=== PATIENT | male | born 1935 | race Caucasian/White ===

== ENCOUNTER 2017-12-23 21:15 | Inpatient (IN) ==
[2017-12-23] MEDS ORDERED: ONDANSETRON 4 MG/2 ML VIAL IV STA (22:53)
[2017-12-23 23:36] LABS: Basophils % 0.6 % (0.0-0.8); Eosinophils # 0.2 10*3/uL (0.0-0.87); Eosinophils % 3.7 % (0.00-10.9); Hematocrit 26.4 VOL% (42.0-52.0); Hemoglobin 8.7 GM/DL (14.0-18.0); Immature Granulocytes % 0.8 %; Immature Granulocytes Absolute 0.05 #; Lymphocytes # 1.2 10*3/uL (1.4-4.0); Mean Corpuscular Hemoglobin 30 PG (27-34); Mean Corpuscular Volume 91.7 FL (87-102); Monocytes # 0.9 10*3/uL (0.11-0.8); Monocytes % 13.8 % (1.7-12.7); Neutrophils # 3.8 10*3/uL (1.4-7.4); Neutrophils % 62.1 % (38.7-73.9); Platelet Count 230 T/CUMM (130-400); Red Blood Count 2.88 MC/CUMM (3.8-5.5); Red Cell Distribution Width 18.7 % (9.3-17.3); White Blood Count 6.2 T/CUMM (4-12)
[2017-12-23] MEDS: HYDROmorphone 2 MG/1 ML VIAL IV PRN (23:39)
[2017-12-24] LABS: Albumin 3.5 G/DL (3.4-5.0); Bilirubin,Total 0.5 MG/DL (0.2-1.0); Osmolality,Calculated 267.5 MOS/KG (273-304); Potassium 4.5 MMOL/L (3.5-5.1); Total Protein 7.2 G/DL (6.4-8.3)
[2017-12-24] MEDS: HYDROmorphone 2 MG/1 ML VIAL IV PRN ×2 (00:56→04:03)
[2017-12-24 01:37] LABS: Apearance,Urine CLEAR (Clear); Bacteria,Urine Occasional /HPF (Few); Bilirubin,Urine Negative (Negative); Blood, Urine Negative (Negative); Glucose,Urine (UA) Negative (Negative); Hyaline Casts,Urine 3 /LPF (0-3); Ketones,Urine Negative (Negative); Nitrite,Urine Negative (Negative); Protein,Urine 30 MG/DL; RBC,Urine 3 /HPF (0-4); Urine Color Amber (Yellow); Urine Specific Gravity 1.015 (1.001-1.035); Urine Urobilinogen < 2.0 EU/DL (0.2-1.0); WBC,Urine 1 /HPF (0-6)
[2017-12-24] MEDS ORDERED: ONDANSETRON 4 MG/2 ML VIAL IV PRN ×2 (01:41→12:26)
[2017-12-24] MEDS ORDERED: ACETAMINOPHEN 325 MG TABLET PO PRN (01:41)
[2017-12-24] MEDS ORDERED: FUROSEMIDE 20 MG TABLET PO PRN (08:18)
[2017-12-24] MEDS ORDERED: NITROGLYCERIN SL 0.4 MG TABLET SL PRN (08:18)
[2017-12-24] MEDS ORDERED: SODIUM CHLORIDE 0.9% 1,000 ML IV ONE (08:46)
[2017-12-24] MEDS ORDERED: ceFAZolin 1,000 MG in SYRINGE 1 EACH IV ONE (09:49)
[2017-12-24 10:01] LABS: Basophils % 0.7 % (0.0-0.8); Eosinophils # 0.4 10*3/uL (0.0-0.87); Eosinophils % 6.1 % (0.00-10.9); Hematocrit 26.2 VOL% (42.0-52.0); Hemoglobin 8.9 GM/DL (14.0-18.0); Immature Granulocytes % 0.3 %; Immature Granulocytes Absolute 0.02 #; Lymphocytes # 0.9 10*3/uL (1.4-4.0); Lymphocytes % 15.6 % (21.2-54.2); Mean Corpuscular Hemoglobin 31 PG (27-34); Monocytes # 0.7 10*3/uL (0.11-0.8); Monocytes % 11.3 % (1.7-12.7); Neutrophils # 3.9 10*3/uL (1.4-7.4); Platelet Count 238 T/CUMM (130-400); Red Blood Count 2.88 MC/CUMM (3.8-5.5); Red Cell Distribution Width 19.4 % (9.3-17.3)
[2017-12-24 10:16] LABS: Calcium 8.9 MG/DL (8.5-10.1); Osmolality,Calculated 270.2 MOS/KG (273-304); Potassium 5.2 MMOL/L (3.5-5.1)
[2017-12-24] MEDS ORDERED: LIDOCAINE 1%/EPI INJ 20 ML VIAL ONE (10:39)
[2017-12-24] MEDS: amLODIPine 10 MG TABLET PO SCH (10:41)
[2017-12-24] MEDS: LORATADINE 10 MG TABLET PO SCH (10:42)
[2017-12-24] MEDS: ASPIRIN EC 81 MG TABLET PO SCH (10:42)
[2017-12-24] MEDS: DOCUSATE SODIUM 100 MG CAPSULE PO SCH ×2 (10:42→20:05)
[2017-12-24] MEDS: POLYETHYLENE GLYCOL POWDER 17 GM PACK PO SCH (10:42)
[2017-12-24] MEDS: ATORVASTATIN 40 MG TABLET PO SCH (10:42)
[2017-12-24] MEDS: TAMSULOSIN 0.4 MG CAPSULE PO SCH (10:42)
[2017-12-24] MEDS: oxyCODONE/ACETAMINOPHEN 5-325 MG TABLET PO SCH ×3 (10:43→20:04)
[2017-12-24] MEDS ORDERED: SODIUM POLYSTYRENE SULFATE 15 GM/60 ML BOTTLE PO STA (11:50)
[2017-12-24] MEDS ORDERED: PROPOFOL 200 MG/20 ML VIAL IV ONE (12:09)
[2017-12-24] MEDS ORDERED: MIDAZOLAM 2 MG/2 ML VIAL ONE (12:09)
[2017-12-24] MEDS ORDERED: ONDANSETRON 4 MG/2 ML VIAL ONE (12:21)
[2017-12-24] MEDS ORDERED: HYDROmorphone 2 MG/1 ML VIAL ONE (12:21)
[2017-12-24] MEDS ORDERED: HYDROmorphone 2 MG/1 ML VIAL IV PRN (12:26)
[2017-12-24] MEDS: ALBUTEROL/IPRATROPIUM 3 ML NEB RESP TX SCH ×2 (13:30→18:55)
[2017-12-24] MEDS: SODIUM CHLORIDE 0.9% 1,000 ML IV SCH ×3 (14:25→23:12)
[2017-12-24] MEDS: ATENOLOL 25 MG TABLET PO SCH ×2 (14:25→20:04)
[2017-12-24] MEDS: PANTOPRAZOLE 40 MG TABLET PO SCH (14:25)
[2017-12-24] MEDS: ACETAMINOPHEN/diphenhydrAMINE 500-25 MG TABLET PO SCH (20:05)
[2017-12-25] MEDS: ALBUTEROL/IPRATROPIUM 3 ML NEB RESP TX SCH ×4 (00:30→19:40)
[2017-12-25 05:15] LABS: Basophils % 0.5 % (0.0-0.8); Eosinophils # 0.3 10*3/uL (0.0-0.87); Eosinophils % 5.6 % (0.00-10.9); Hematocrit 24.5 VOL% (42.0-52.0); Immature Granulocytes % 0.7 %; Immature Granulocytes Absolute 0.04 #; Lymphocytes % 16.4 % (21.2-54.2); Mean Corpuscular HGB Conc 32.7 GM/DL (32-36); Mean Corpuscular Hemoglobin 30 PG (27-34); Mean Corpuscular Volume 91.8 FL (87-102); Mean Platelet Volume 10.1 FL (9.6-12.0); Monocytes # 0.7 10*3/uL (0.11-0.8); Monocytes % 11.5 % (1.7-12.7); Neutrophils # 3.9 10*3/uL (1.4-7.4); Neutrophils % 65.3 % (38.7-73.9); Platelet Count 227 T/CUMM (130-400); Red Blood Count 2.67 MC/CUMM (3.8-5.5); Red Cell Distribution Width 19.2 % (9.3-17.3); White Blood Count 5.9 T/CUMM (4-12)
[2017-12-25 06:00] LABS: Calcium 8.2 MG/DL (8.5-10.1); Osmolality,Calculated 276.7 MOS/KG (273-304); Potassium 4.7 MMOL/L (3.5-5.1)
[2017-12-25] MEDS: SODIUM CHLORIDE 0.9% 1,000 ML IV SCH ×4 (06:02→23:20)
[2017-12-25] MEDS: oxyCODONE/ACETAMINOPHEN 5-325 MG TABLET PO SCH ×3 (09:00→20:24)
[2017-12-25] MEDS ORDERED: KETOROLAC 30 MG/1 ML VIAL IV ONE (10:30)
[2017-12-25] MEDS: LORATADINE 10 MG TABLET PO SCH (10:35)
[2017-12-25] MEDS: ASPIRIN EC 81 MG TABLET PO SCH (10:35)
[2017-12-25] MEDS: TAMSULOSIN 0.4 MG CAPSULE PO SCH (10:36)
[2017-12-25] MEDS: DOCUSATE SODIUM 100 MG CAPSULE PO SCH ×2 (10:36→20:23)
[2017-12-25] MEDS: amLODIPine 10 MG TABLET PO SCH (10:37)
[2017-12-25] MEDS: POLYETHYLENE GLYCOL POWDER 17 GM PACK PO SCH (10:37)
[2017-12-25] MEDS: ATORVASTATIN 40 MG TABLET PO SCH (10:37)
[2017-12-25] MEDS: PANTOPRAZOLE 40 MG TABLET PO SCH (10:38)
[2017-12-25] MEDS: ATENOLOL 25 MG TABLET PO SCH ×2 (10:40→20:23)
[2017-12-25] MEDS: cefTRIAXone 1,000 MG in SYRINGE 1 EACH IV SCH (15:20)
[2017-12-25] MEDS: KETOROLAC 15 MG/1 ML VIAL IV SCH ×2 (17:13→23:20)
[2017-12-25] MEDS: ACETAMINOPHEN/diphenhydrAMINE 500-25 MG TABLET PO SCH (20:27)
[2017-12-25] MEDS: HYDROmorphone 2 MG/1 ML VIAL IV PRN (23:25)
[2017-12-26] MEDS: ALBUTEROL/IPRATROPIUM 3 ML NEB RESP TX SCH ×4 (01:02→20:12)
[2017-12-26] MEDS: KETOROLAC 15 MG/1 ML VIAL IV SCH ×4 (03:51→22:39)
[2017-12-26 05:39] LABS: Basophils % 0.6 % (0.0-0.8); Eosinophils # 0.5 10*3/uL (0.0-0.87); Eosinophils % 6.8 % (0.00-10.9); Hematocrit 25.2 VOL% (42.0-52.0); Immature Granulocytes % 0.6 %; Immature Granulocytes Absolute 0.04 #; Lymphocytes # 0.8 10*3/uL (1.4-4.0); Lymphocytes % 11.7 % (21.2-54.2); Mean Corpuscular HGB Conc 31.7 GM/DL (32-36); Mean Corpuscular Hemoglobin 30 PG (27-34); Mean Corpuscular Volume 95.5 FL (87-102); Monocytes # 0.6 10*3/uL (0.11-0.8); Neutrophils # 5.1 10*3/uL (1.4-7.4); Neutrophils % 71.3 % (38.7-73.9); Platelet Count 242 T/CUMM (130-400); Red Blood Count 2.64 MC/CUMM (3.8-5.5); Red Cell Distribution Width 19.1 % (9.3-17.3); White Blood Count 7.1 T/CUMM (4-12)
[2017-12-26] MEDS: HYDROmorphone 2 MG/1 ML VIAL IV PRN (05:47)
[2017-12-26 06:06] LABS: Calcium 8.1 MG/DL (8.5-10.1); Osmolality,Calculated 277.7 MOS/KG (273-304); Potassium 4.6 MMOL/L (3.5-5.1)
[2017-12-26 06:12] LABS: % Iron Saturation 17.8 % (18-50); Ferritin 198.3 ng/ml (26-388)
[2017-12-26] MEDS: SODIUM CHLORIDE 0.9% 1,000 ML IV SCH ×2 (06:48→12:14)
[2017-12-26] MEDS: ASPIRIN EC 81 MG TABLET PO SCH (08:45)
[2017-12-26] MEDS: oxyCODONE/ACETAMINOPHEN 5-325 MG TABLET PO SCH (08:46)
[2017-12-26] MEDS: ATORVASTATIN 40 MG TABLET PO SCH (08:46)
[2017-12-26] MEDS: DOCUSATE SODIUM 100 MG CAPSULE PO SCH ×2 (08:46→20:55)
[2017-12-26] MEDS: LORATADINE 10 MG TABLET PO SCH (08:46)
[2017-12-26] MEDS: TAMSULOSIN 0.4 MG CAPSULE PO SCH (08:46)
[2017-12-26] MEDS: POLYETHYLENE GLYCOL POWDER 17 GM PACK PO SCH ×2 (08:46→08:48)
[2017-12-26] MEDS: amLODIPine 10 MG TABLET PO SCH (08:46)
[2017-12-26] MEDS: ATENOLOL 25 MG TABLET PO SCH ×2 (08:47→20:53)
[2017-12-26] MEDS: PANTOPRAZOLE 40 MG TABLET PO SCH (08:47)
[2017-12-26] MEDS: cefTRIAXone 1,000 MG in SYRINGE 1 EACH IV SCH (14:38)
[2017-12-26] MEDS: oxyCODONE/ACETAMINOPHEN 5-325 MG TABLET PO PRN (18:22)
[2017-12-26] MEDS: CALCIUM (CARBONATE)/VITAMIN D 600 MG-400 UNIT TABLET PO SCH (20:53)
[2017-12-26] MEDS: cephALEXin 500 MG CAPSULE PO SCH (20:53)
[2017-12-26] MEDS: clonazePAM 0.5 MG TABLET PO PRN (20:54)
[2017-12-26] MEDS: ACETAMINOPHEN/diphenhydrAMINE 500-25 MG TABLET PO SCH (22:42)
[2017-12-27] MEDS: ALBUTEROL/IPRATROPIUM 3 ML NEB RESP TX SCH ×2 (01:29→07:40)
[2017-12-27] MEDS: KETOROLAC 15 MG/1 ML VIAL IV SCH ×4 (04:21→21:40)
[2017-12-27] MEDS: oxyCODONE/ACETAMINOPHEN 5-325 MG TABLET PO PRN ×2 (04:26→14:13)
[2017-12-27 05:35] LABS: Basophils % 0.4 % (0.0-0.8); Eosinophils # 0.5 10*3/uL (0.0-0.87); Eosinophils % 6.7 % (0.00-10.9); Hemoglobin 8.2 GM/DL (14.0-18.0); Immature Granulocytes % 0.3 %; Immature Granulocytes Absolute 0.02 #; Lymphocytes # 0.8 10*3/uL (1.4-4.0); Lymphocytes % 10.9 % (21.2-54.2); Mean Corpuscular HGB Conc 34.2 GM/DL (32-36); Mean Corpuscular Hemoglobin 31 PG (27-34); Mean Platelet Volume 10.2 FL (9.6-12.0); Monocytes # 0.6 10*3/uL (0.11-0.8); Monocytes % 7.6 % (1.7-12.7); Neutrophils # 5.7 10*3/uL (1.4-7.4); Neutrophils % 74.1 % (38.7-73.9); Platelet Count 250 T/CUMM (130-400); Red Blood Count 2.61 MC/CUMM (3.8-5.5); Red Cell Distribution Width 18.8 % (9.3-17.3); White Blood Count 7.6 T/CUMM (4-12)
[2017-12-27 06:01] LABS: Osmolality,Calculated 279.5 MOS/KG (273-304); Potassium 4.2 MMOL/L (3.5-5.1)
[2017-12-27] MEDS: POLYETHYLENE GLYCOL POWDER 17 GM PACK PO SCH (09:11)
[2017-12-27] MEDS: CALCIUM (CARBONATE)/VITAMIN D 600 MG-400 UNIT TABLET PO SCH ×2 (09:11→20:58)
[2017-12-27] MEDS: cephALEXin 500 MG CAPSULE PO SCH (09:12)
[2017-12-27] MEDS: ATORVASTATIN 40 MG TABLET PO SCH (09:12)
[2017-12-27] MEDS: DOCUSATE SODIUM 100 MG CAPSULE PO SCH ×2 (09:12→20:58)
[2017-12-27] MEDS: ATENOLOL 25 MG TABLET PO SCH ×2 (09:12→20:58)
[2017-12-27] MEDS: PANTOPRAZOLE 40 MG TABLET PO SCH (09:12)
[2017-12-27] MEDS: LORATADINE 10 MG TABLET PO SCH (09:12)
[2017-12-27] MEDS: amLODIPine 5 MG TABLET PO SCH (09:12)
[2017-12-27] MEDS: ASPIRIN EC 81 MG TABLET PO SCH (09:12)
[2017-12-27] MEDS: TAMSULOSIN 0.4 MG CAPSULE PO SCH ×2 (09:13→20:58)
[2017-12-27] MEDS: CEFEPIME 1,000 MG in SYRINGE 1 EACH IV SCH ×2 (10:38→20:59)
[2017-12-27] MEDS: methylPREDNISolone SOD SUC 40 MG/1 ML VIAL IV SCH ×2 (10:43→18:41)
[2017-12-27] MEDS: ALBUTEROL 1.25 MG/3 ML NEB RESP TX SCH ×2 (14:25→20:02)
[2017-12-27] MEDS: COLLAGENASE OINT 30 GM TUBE TOP SCH (18:28)
[2017-12-27] MEDS: SODIUM CHLORIDE 0.9% 1,000 ML IV SCH (19:36)
[2017-12-27] MEDS: ACETAMINOPHEN/diphenhydrAMINE 500-25 MG TABLET PO SCH (20:58)
[2017-12-28] MEDS: ALBUTEROL 1.25 MG/3 ML NEB RESP TX SCH ×4 (00:43→20:50)
[2017-12-28] MEDS: methylPREDNISolone SOD SUC 40 MG/1 ML VIAL IV SCH ×2 (02:14→08:57)
[2017-12-28 04:56] LABS: Basophils % 0.1 % (0.0-0.8); Hematocrit 25.6 VOL% (42.0-52.0); Hemoglobin 8.4 GM/DL (14.0-18.0); Immature Granulocytes % 0.7 %; Immature Granulocytes Absolute 0.06 #; Lymphocytes # 0.4 10*3/uL (1.4-4.0); Lymphocytes % 4.8 % (21.2-54.2); Mean Corpuscular HGB Conc 32.8 GM/DL (32-36); Mean Corpuscular Hemoglobin 30 PG (27-34); Mean Corpuscular Volume 91.8 FL (87-102); Mean Platelet Volume 10.2 FL (9.6-12.0); Monocytes # 0.2 10*3/uL (0.11-0.8); Monocytes % 2.2 % (1.7-12.7); Neutrophils # 8.1 10*3/uL (1.4-7.4); Neutrophils % 92.2 % (38.7-73.9); Platelet Count 302 T/CUMM (130-400); Red Blood Count 2.79 MC/CUMM (3.8-5.5); Red Cell Distribution Width 18.4 % (9.3-17.3); White Blood Count 8.8 T/CUMM (4-12)
[2017-12-28] MEDS: KETOROLAC 15 MG/1 ML VIAL IV SCH ×4 (05:05→21:30)
[2017-12-28 05:22] LABS: Burr Cells Slight; Giant Platelets Few; Hypochromasia 1+; Lymphocytes 5 % (20-55); Ovalocytes Slight; Platelet Estimate Adequate; Segmented Neutrophils 95 % (50-85); Total Cells Counted 100
[2017-12-28 05:33] LABS: Calcium 8.3 MG/DL (8.5-10.1); Osmolality,Calculated 276.2 MOS/KG (273-304)
[2017-12-28] MEDS: ATORVASTATIN 40 MG TABLET PO SCH (08:56)
[2017-12-28] MEDS: amLODIPine 5 MG TABLET PO SCH (08:56)
[2017-12-28] MEDS: LORATADINE 10 MG TABLET PO SCH (08:56)
[2017-12-28] MEDS: oxyCODONE/ACETAMINOPHEN 5-325 MG TABLET PO PRN ×2 (08:56→23:17)
[2017-12-28] MEDS: CALCIUM (CARBONATE)/VITAMIN D 600 MG-400 UNIT TABLET PO SCH ×2 (08:56→20:32)
[2017-12-28] MEDS: ASPIRIN EC 81 MG TABLET PO SCH (08:56)
[2017-12-28] MEDS: ATENOLOL 25 MG TABLET PO SCH ×2 (08:56→20:32)
[2017-12-28] MEDS: PANTOPRAZOLE 40 MG TABLET PO SCH (08:57)
[2017-12-28] MEDS: TAMSULOSIN 0.4 MG CAPSULE PO SCH ×2 (08:57→20:32)
[2017-12-28] MEDS: POLYETHYLENE GLYCOL POWDER 17 GM PACK PO SCH (08:57)
[2017-12-28] MEDS: FUROSEMIDE 20 MG/2 ML VIAL IV SCH (08:57)
[2017-12-28] MEDS: DOCUSATE SODIUM 100 MG CAPSULE PO SCH ×2 (08:57→20:32)
[2017-12-28] MEDS: COLLAGENASE OINT 30 GM TUBE TOP SCH (08:57)
[2017-12-28] MEDS: CEFEPIME 1,000 MG in SYRINGE 1 EACH IV SCH ×2 (08:58→20:33)
[2017-12-28] MEDS ORDERED: LATANOPROST 0.005% OPH SOLN 2.5 ML BOTTLE RIGHT EYE SCH (09:00)
[2017-12-28] MEDS: TIMOLOL 0.5% OPH SOLN 5 ML BOTTLE RIGHT EYE SCH (09:03)
[2017-12-28] MEDS: LATANOPROST 0.005% OPH SOLN 2.5 ML BOTTLE RIGHT EYE SCH (21:29)
[2017-12-29] MEDS: ALBUTEROL 1.25 MG/3 ML NEB RESP TX SCH ×4 (02:25→19:40)
[2017-12-29 03:05] LABS: Basophils % 0.2 % (0.0-0.8); Eosinophils % 0.2 % (0.00-10.9); Hematocrit 25.3 VOL% (42.0-52.0); Hemoglobin 8.3 GM/DL (14.0-18.0); Immature Granulocytes % 0.7 %; Immature Granulocytes Absolute 0.12 #; Lymphocytes # 1.3 10*3/uL (1.4-4.0); Lymphocytes % 7.7 % (21.2-54.2); Mean Corpuscular HGB Conc 32.8 GM/DL (32-36); Mean Corpuscular Hemoglobin 31 PG (27-34); Mean Corpuscular Volume 93.7 FL (87-102); Mean Platelet Volume 10.2 FL (9.6-12.0); Monocytes # 1.2 10*3/uL (0.11-0.8); Monocytes % 7.2 % (1.7-12.7); Neutrophils # 13.8 10*3/uL (1.4-7.4); Platelet Count 327 T/CUMM (130-400); Red Cell Distribution Width 18.6 % (9.3-17.3); White Blood Count 16.5 T/CUMM (4-12)
[2017-12-29 03:37] LABS: Calcium 8.3 MG/DL (8.5-10.1); Osmolality,Calculated 287.4 MOS/KG (273-304); Potassium 4.5 MMOL/L (3.5-5.1)
[2017-12-29] MEDS: KETOROLAC 15 MG/1 ML VIAL IV SCH ×4 (05:22→22:54)
[2017-12-29] MEDS ORDERED: LIDOCAINE 2% 20 ML VIAL MISC INJ ONE (08:10)
[2017-12-29] MEDS ORDERED: DOXYCYCLINE HYCLATE 100 MG CAPSULE PO ONE (08:10)
[2017-12-29] MEDS ORDERED: TUBERCULIN SKIN TEST 0.1 ML SYRINGE INTRADERM ONE (08:18)
[2017-12-29] MEDS: FUROSEMIDE 20 MG/2 ML VIAL IV SCH (09:20)
[2017-12-29] MEDS: ASPIRIN EC 81 MG TABLET PO SCH (09:24)
[2017-12-29] MEDS: ATENOLOL 25 MG TABLET PO SCH ×2 (09:24→21:33)
[2017-12-29] MEDS: CALCIUM (CARBONATE)/VITAMIN D 600 MG-400 UNIT TABLET PO SCH ×2 (09:24→21:32)
[2017-12-29] MEDS: amLODIPine 5 MG TABLET PO SCH (09:24)
[2017-12-29] MEDS: ATORVASTATIN 40 MG TABLET PO SCH (09:24)
[2017-12-29] MEDS: DOCUSATE SODIUM 100 MG CAPSULE PO SCH ×2 (09:25→21:33)
[2017-12-29] MEDS: PANTOPRAZOLE 40 MG TABLET PO SCH (09:25)
[2017-12-29] MEDS: TAMSULOSIN 0.4 MG CAPSULE PO SCH ×2 (09:25→21:33)
[2017-12-29] MEDS: TIMOLOL 0.5% OPH SOLN 5 ML BOTTLE RIGHT EYE SCH (09:26)
[2017-12-29] MEDS: COLLAGENASE OINT 30 GM TUBE TOP SCH (09:26)
[2017-12-29] MEDS: CEFEPIME 1,000 MG in SYRINGE 1 EACH IV SCH ×2 (09:26→21:34)
[2017-12-29] MEDS: POLYETHYLENE GLYCOL POWDER 17 GM PACK PO SCH (09:26)
[2017-12-29] MEDS: methylPREDNISolone SOD SUC 40 MG/1 ML VIAL IV SCH (09:27)
[2017-12-29] MEDS: oxyCODONE/ACETAMINOPHEN 5-325 MG TABLET PO PRN (14:25)
[2017-12-29] MEDS: LATANOPROST 0.005% OPH SOLN 2.5 ML BOTTLE RIGHT EYE SCH (21:48)
[2017-12-30] MEDS: ALBUTEROL 1.25 MG/3 ML NEB RESP TX SCH ×4 (00:19→19:13)
[2017-12-30] MEDS: KETOROLAC 15 MG/1 ML VIAL IV SCH ×2 (04:47→10:50)
[2017-12-30 05:34] LABS: Basophils # 0.1 10*3/uL (0.0-0.2); Basophils % 0.4 % (0.0-0.8); Eosinophils # 0.7 10*3/uL (0.0-0.87); Eosinophils % 4.6 % (0.00-10.9); Hematocrit 26.4 VOL% (42.0-52.0); Hemoglobin 8.5 GM/DL (14.0-18.0); Immature Granulocytes Absolute 0.14 #; Lymphocytes # 1.1 10*3/uL (1.4-4.0); Lymphocytes % 7.9 % (21.2-54.2); Mean Corpuscular HGB Conc 32.2 GM/DL (32-36); Mean Corpuscular Hemoglobin 31 PG (27-34); Mean Platelet Volume 10.1 FL (9.6-12.0); Monocytes # 0.8 10*3/uL (0.11-0.8); Monocytes % 5.6 % (1.7-12.7); Neutrophils # 11.5 10*3/uL (1.4-7.4); Neutrophils % 80.5 % (38.7-73.9); Platelet Count 337 T/CUMM (130-400); Red Blood Count 2.78 MC/CUMM (3.8-5.5); Red Cell Distribution Width 18.6 % (9.3-17.3); White Blood Count 14.2 T/CUMM (4-12)
[2017-12-30 06:03] LABS: Calcium 8.7 MG/DL (8.5-10.1); Osmolality,Calculated 289.4 MOS/KG (273-304); Potassium 4.3 MMOL/L (3.5-5.1)
[2017-12-30] MEDS ORDERED: MEPERIDINE 25 MG/1 ML VIAL IV ONE (06:51)
[2017-12-30] MEDS ORDERED: DOXYCYCLINE HYCLATE 100 MG CAPSULE PO ONE ×2 (07:07→07:30)
[2017-12-30] MEDS: methylPREDNISolone SOD SUC 40 MG/1 ML VIAL IV SCH (09:27)
[2017-12-30] MEDS: FUROSEMIDE 20 MG/2 ML VIAL IV SCH (09:27)
[2017-12-30] MEDS: DOCUSATE SODIUM 100 MG CAPSULE PO SCH ×2 (09:28→21:52)
[2017-12-30] MEDS: PANTOPRAZOLE 40 MG TABLET PO SCH (09:28)
[2017-12-30] MEDS: CALCIUM (CARBONATE)/VITAMIN D 600 MG-400 UNIT TABLET PO SCH ×2 (09:28→21:52)
[2017-12-30] MEDS: ATENOLOL 25 MG TABLET PO SCH ×2 (09:28→21:52)
[2017-12-30] MEDS: ASPIRIN EC 81 MG TABLET PO SCH (09:28)
[2017-12-30] MEDS: ATORVASTATIN 40 MG TABLET PO SCH (09:28)
[2017-12-30] MEDS: TAMSULOSIN 0.4 MG CAPSULE PO SCH ×2 (09:28→21:52)
[2017-12-30] MEDS: amLODIPine 5 MG TABLET PO SCH (09:28)
[2017-12-30] MEDS: POLYETHYLENE GLYCOL POWDER 17 GM PACK PO SCH ×2 (09:29→09:36)
[2017-12-30] MEDS: CEFEPIME 1,000 MG in SYRINGE 1 EACH IV SCH ×2 (09:42→21:52)
[2017-12-30] MEDS: TIMOLOL 0.5% OPH SOLN 5 ML BOTTLE RIGHT EYE SCH (09:42)
[2017-12-30] MEDS: COLLAGENASE OINT 30 GM TUBE TOP SCH (10:57)
[2017-12-30] MEDS: clonazePAM 0.5 MG TABLET PO PRN (15:41)
[2017-12-30] MEDS: oxyCODONE/ACETAMINOPHEN 5-325 MG TABLET PO PRN (15:41)
[2017-12-30] MEDS: ZALEPLON 5 MG CAPSULE PO PRN (21:52)
[2017-12-30] MEDS: LATANOPROST 0.005% OPH SOLN 2.5 ML BOTTLE RIGHT EYE SCH (22:31)
[2017-12-31] MEDS: ALBUTEROL 1.25 MG/3 ML NEB RESP TX SCH ×4 (00:30→19:53)
[2017-12-31] MEDS: oxyCODONE/ACETAMINOPHEN 5-325 MG TABLET PO PRN ×3 (05:35→17:22)
[2017-12-31] MEDS: TAMSULOSIN 0.4 MG CAPSULE PO SCH ×2 (10:17→21:53)
[2017-12-31] MEDS: CALCIUM (CARBONATE)/VITAMIN D 600 MG-400 UNIT TABLET PO SCH ×2 (10:17→21:53)
[2017-12-31] MEDS: ATENOLOL 25 MG TABLET PO SCH ×2 (10:17→21:53)
[2017-12-31] MEDS: ASPIRIN EC 81 MG TABLET PO SCH (10:17)
[2017-12-31] MEDS: ATORVASTATIN 40 MG TABLET PO SCH (10:17)
[2017-12-31] MEDS: DOCUSATE SODIUM 100 MG CAPSULE PO SCH ×2 (10:17→21:53)
[2017-12-31] MEDS: POLYETHYLENE GLYCOL POWDER 17 GM PACK PO SCH (10:18)
[2017-12-31] MEDS: amLODIPine 5 MG TABLET PO SCH (10:18)
[2017-12-31] MEDS: PANTOPRAZOLE 40 MG TABLET PO SCH (10:18)
[2017-12-31] MEDS: CEFEPIME 1,000 MG in SYRINGE 1 EACH IV SCH ×2 (10:19→21:53)
[2017-12-31] MEDS: FUROSEMIDE 20 MG/2 ML VIAL IV SCH (10:22)
[2017-12-31] MEDS: methylPREDNISolone SOD SUC 40 MG/1 ML VIAL IV SCH (10:25)
[2017-12-31] MEDS: TIMOLOL 0.5% OPH SOLN 5 ML BOTTLE RIGHT EYE SCH (10:27)
[2017-12-31] MEDS: COLLAGENASE OINT 30 GM TUBE TOP SCH (17:48)
[2017-12-31] MEDS: ZALEPLON 5 MG CAPSULE PO PRN (21:55)
[2017-12-31] MEDS: LATANOPROST 0.005% OPH SOLN 2.5 ML BOTTLE RIGHT EYE SCH (22:01)
[2018-01-01] MEDS: ALBUTEROL 1.25 MG/3 ML NEB RESP TX SCH ×4 (02:10→19:44)
[2018-01-01] MEDS: oxyCODONE/ACETAMINOPHEN 5-325 MG TABLET PO PRN ×2 (02:17→14:28)
[2018-01-01] MEDS ORDERED: HYDROmorphone 2 MG/1 ML VIAL IV ONE (03:20)
[2018-01-01 04:00] LABS: Basophils % 0.2 % (0.0-0.8); Eosinophils # 0.2 10*3/uL (0.0-0.87); Eosinophils % 1.3 % (0.00-10.9); Hematocrit 28.4 VOL% (42.0-52.0); Hemoglobin 9.6 GM/DL (14.0-18.0); Immature Granulocytes % 0.8 %; Immature Granulocytes Absolute 0.13 #; Lymphocytes # 1.4 10*3/uL (1.4-4.0); Lymphocytes % 8.4 % (21.2-54.2); Mean Corpuscular HGB Conc 33.8 GM/DL (32-36); Mean Corpuscular Hemoglobin 31 PG (27-34); Mean Corpuscular Volume 90.7 FL (87-102); Mean Platelet Volume 10.4 FL (9.6-12.0); Monocytes # 1.5 10*3/uL (0.11-0.8); Monocytes % 9.3 % (1.7-12.7); Platelet Count 416 T/CUMM (130-400); Red Blood Count 3.13 MC/CUMM (3.8-5.5); Red Cell Distribution Width 18.8 % (9.3-17.3); White Blood Count 16.3 T/CUMM (4-12)
[2018-01-01 04:23] LABS: Osmolality,Calculated 293.3 MOS/KG (273-304); Potassium 3.8 MMOL/L (3.5-5.1)
[2018-01-01] MEDS: ATENOLOL 25 MG TABLET PO SCH ×2 (10:16→21:02)
[2018-01-01] MEDS: CALCIUM (CARBONATE)/VITAMIN D 600 MG-400 UNIT TABLET PO SCH ×2 (10:16→21:03)
[2018-01-01] MEDS: PANTOPRAZOLE 40 MG TABLET PO SCH (10:16)
[2018-01-01] MEDS: amLODIPine 5 MG TABLET PO SCH (10:16)
[2018-01-01] MEDS: ATORVASTATIN 40 MG TABLET PO SCH (10:16)
[2018-01-01] MEDS: ASPIRIN EC 81 MG TABLET PO SCH (10:16)
[2018-01-01] MEDS: TAMSULOSIN 0.4 MG CAPSULE PO SCH ×2 (10:16→21:02)
[2018-01-01] MEDS: DOCUSATE SODIUM 100 MG CAPSULE PO SCH ×2 (10:16→21:02)
[2018-01-01] MEDS: FUROSEMIDE 20 MG/2 ML VIAL IV SCH (10:17)
[2018-01-01] MEDS: methylPREDNISolone SOD SUC 40 MG/1 ML VIAL IV SCH (10:17)
[2018-01-01] MEDS: CEFEPIME 1,000 MG in SYRINGE 1 EACH IV SCH ×2 (10:17→21:05)
[2018-01-01] MEDS: TIMOLOL 0.5% OPH SOLN 5 ML BOTTLE RIGHT EYE SCH (10:18)
[2018-01-01] MEDS: POLYETHYLENE GLYCOL POWDER 17 GM PACK PO SCH (14:29)
[2018-01-01] MEDS: COLLAGENASE OINT 30 GM TUBE TOP SCH (17:04)
[2018-01-01] MEDS: LATANOPROST 0.005% OPH SOLN 2.5 ML BOTTLE RIGHT EYE SCH (21:03)
[2018-01-02] MEDS: ALBUTEROL 1.25 MG/3 ML NEB RESP TX SCH ×4 (00:51→19:16)
[2018-01-02] MEDS: oxyCODONE/ACETAMINOPHEN 5-325 MG TABLET PO PRN ×3 (04:26→21:09)
[2018-01-02] MEDS: CALCIUM (CARBONATE)/VITAMIN D 600 MG-400 UNIT TABLET PO SCH ×2 (09:59→21:04)
[2018-01-02] MEDS: ATORVASTATIN 40 MG TABLET PO SCH (09:59)
[2018-01-02] MEDS: PANTOPRAZOLE 40 MG TABLET PO SCH (09:59)
[2018-01-02] MEDS: amLODIPine 5 MG TABLET PO SCH (10:00)
[2018-01-02] MEDS: ASPIRIN EC 81 MG TABLET PO SCH (10:00)
[2018-01-02] MEDS: DOCUSATE SODIUM 100 MG CAPSULE PO SCH ×2 (10:00→21:04)
[2018-01-02] MEDS: ATENOLOL 25 MG TABLET PO SCH ×2 (10:00→21:04)
[2018-01-02] MEDS: methylPREDNISolone SOD SUC 40 MG/1 ML VIAL IV SCH (10:00)
[2018-01-02] MEDS: POLYETHYLENE GLYCOL POWDER 17 GM PACK PO SCH (10:00)
[2018-01-02] MEDS: TAMSULOSIN 0.4 MG CAPSULE PO SCH ×2 (10:00→21:05)
[2018-01-02] MEDS: FUROSEMIDE 20 MG/2 ML VIAL IV SCH (10:03)
[2018-01-02] MEDS: CEFEPIME 1,000 MG in SYRINGE 1 EACH IV SCH ×2 (10:06→21:09)
[2018-01-02] MEDS: TIMOLOL 0.5% OPH SOLN 5 ML BOTTLE RIGHT EYE SCH (10:44)
[2018-01-02] MEDS: COLLAGENASE OINT 30 GM TUBE TOP SCH (11:37)
[2018-01-02] MEDS: LATANOPROST 0.005% OPH SOLN 2.5 ML BOTTLE RIGHT EYE SCH (21:09)
[2018-01-03] MEDS: ALBUTEROL 1.25 MG/3 ML NEB RESP TX SCH ×4 (00:32→20:21)
[2018-01-03] MEDS: oxyCODONE/ACETAMINOPHEN 5-325 MG TABLET PO PRN ×2 (02:59→16:08)
[2018-01-03] MEDS: clonazePAM 0.5 MG TABLET PO PRN ×2 (06:21→16:09)
[2018-01-03] MEDS: ASPIRIN EC 81 MG TABLET PO SCH (09:31)
[2018-01-03] MEDS: DOCUSATE SODIUM 100 MG CAPSULE PO SCH (09:32)
[2018-01-03] MEDS: FUROSEMIDE 20 MG/2 ML VIAL IV SCH (09:32)
[2018-01-03] MEDS: CALCIUM (CARBONATE)/VITAMIN D 600 MG-400 UNIT TABLET PO SCH (09:32)
[2018-01-03] MEDS: TAMSULOSIN 0.4 MG CAPSULE PO SCH (09:32)
[2018-01-03] MEDS: PANTOPRAZOLE 40 MG TABLET PO SCH (09:33)
[2018-01-03] MEDS: ATENOLOL 25 MG TABLET PO SCH (09:33)
[2018-01-03] MEDS: ATORVASTATIN 40 MG TABLET PO SCH (09:33)
[2018-01-03] MEDS: POLYETHYLENE GLYCOL POWDER 17 GM PACK PO SCH (09:33)
[2018-01-03] MEDS: amLODIPine 5 MG TABLET PO SCH (09:33)
[2018-01-03] MEDS: methylPREDNISolone SOD SUC 40 MG/1 ML VIAL IV SCH (09:40)
[2018-01-03] MEDS: CEFEPIME 1,000 MG in SYRINGE 1 EACH IV SCH (09:49)
[2018-01-03] MEDS: TIMOLOL 0.5% OPH SOLN 5 ML BOTTLE RIGHT EYE SCH (09:54)
[2018-01-03] MEDS ORDERED: TUBERCULIN SKIN TEST 0.1 ML SYRINGE INTRADERM ONE (15:06)
[2018-01-03] MEDS: COLLAGENASE OINT 30 GM TUBE TOP SCH (16:20)
[2018-01-03 17:20] VITALS: BP 105/62
== END 2018-01-03 18:35 | disposition swing bed (61) | DRG 199 ==
LOC: EDBD → EDUNIT# → N.ED 21:15 → N.EDINP 12-24 01:41 → N.3E 12-24 02:47
PROVIDERS: ADMIT Surgery; ATTEND Surgery

== ENCOUNTER 2018-01-26 13:00 | Inpatient (IN) ==
[2018-01-26 13:31] LABS: Basophils % 0.1 % (0.0-0.8); Eosinophils # 0.1 10*3/uL (0.0-0.87); Eosinophils % 0.4 % (0.00-10.9); Hematocrit 30.7 VOL% (42.0-52.0); Hemoglobin 9.8 GM/DL (14.0-18.0); Immature Granulocytes % 0.7 %; Immature Granulocytes Absolute 0.11 #; Lymphocytes % 6.4 % (21.2-54.2); Mean Corpuscular HGB Conc 31.9 GM/DL (32-36); Mean Corpuscular Hemoglobin 30 PG (27-34); Mean Corpuscular Volume 94.2 FL (87-102); Mean Platelet Volume 10.2 FL (9.6-12.0); Monocytes # 1.3 10*3/uL (0.11-0.8); Neutrophils # 13.3 10*3/uL (1.4-7.4); Neutrophils % 84.4 % (38.7-73.9); Platelet Count 313 T/CUMM (130-400); Red Blood Count 3.26 MC/CUMM (3.8-5.5); Red Cell Distribution Width 16.7 % (9.3-17.3); White Blood Count 15.8 T/CUMM (4-12)
[2018-01-26 13:43] LABS: INR 1.2; PT Patient Result 12.1 SECS; Partial Thromboplastin Time 31.3 SECS (0-40)
[2018-01-26 13:50] LABS: Alanine Aminotransferase 23 U/L (16-61); Albumin 2.8 G/DL (3.4-5.0); Alkaline Phosphatase 124 U/L (45-117); Aspartate Amino Transferase 17 U/L (0-37); Blood Urea Nitrogen 21 MG/DL (7-18); Calcium 8.7 MG/DL (8.5-10.1); Glucose 132 MG/DL (74-106); Potassium 4.2 MMOL/L (3.5-5.1); Sodium 136 MMOL/L (136-145); Total Protein 7.1 G/DL (6.4-8.3); Troponin I Only < 0.015 NG/ML (0.00-0.045)
[2018-01-26 13:56] LABS: Apearance,Urine Slightly Hazy (Clear); Bilirubin,Urine Negative (Negative); Blood, Urine Negative (Negative); Glucose,Urine (UA) Negative (Negative); Ketones,Urine Negative (Negative); Nitrite,Urine Negative (Negative); Protein,Urine Negative; RBC,Urine 3 /HPF (0-4); Urine Color Yellow (Yellow); Urine Specific Gravity 1.014 (1.001-1.035); Urine Urobilinogen < 2.0 EU/DL (0.2-1.0); WBC,Urine 94 /HPF (0-6)
[2018-01-26] MEDS ORDERED: MORPHINE 4 MG/1 ML VIAL IV STA (14:55)
[2018-01-26] MEDS ORDERED: MORPHINE 4 MG/1 ML VIAL ONE (15:04)
[2018-01-26] MEDS ORDERED: cefTRIAXone 1,000 MG in SODIUM CHLORIDE 0.9% 100 ML IV STA (15:25)
[2018-01-26] MEDS ORDERED: SODIUM CHLORIDE 0.9% 100 ML IV ONE (15:55)
[2018-01-26] MEDS ORDERED: cefTRIAXone 1,000 MG VIAL ONE (16:04)
[2018-01-26] MEDS: FUROSEMIDE 20 MG/2 ML VIAL IV SCH (18:42)
[2018-01-26] MEDS: MORPHINE 4 MG/1 ML VIAL IV PRN (18:48)
[2018-01-26] MEDS: clonazePAM 0.5 MG TABLET PO SCH (20:38)
[2018-01-26] MEDS: ATORVASTATIN 40 MG TABLET PO SCH (20:38)
[2018-01-26] MEDS: DOCUSATE SODIUM 100 MG CAPSULE PO SCH (20:38)
[2018-01-26] MEDS: ATENOLOL 25 MG TABLET PO SCH (20:38)
[2018-01-26] MEDS: TAMSULOSIN 0.4 MG CAPSULE PO SCH (20:38)
[2018-01-26] MEDS: LATANOPROST 0.005% OPH SOLN 2.5 ML BOTTLE RIGHT EYE SCH (20:39)
[2018-01-26] MEDS: Melatonin [Melatonin] 5 MG PO SCH (20:39)
[2018-01-27] MEDS: MORPHINE 4 MG/1 ML VIAL IV PRN (02:04)
[2018-01-27 05:40] LABS: Basophils % 0.3 % (0.0-0.8); Eosinophils # 0.5 10*3/uL (0.0-0.87); Eosinophils % 4.6 % (0.00-10.9); Hematocrit 26.9 VOL% (42.0-52.0); Hemoglobin 8.6 GM/DL (14.0-18.0); Immature Granulocytes % 0.4 %; Immature Granulocytes Absolute 0.04 #; Lymphocytes # 1.1 10*3/uL (1.4-4.0); Lymphocytes % 10.4 % (21.2-54.2); Mean Corpuscular Hemoglobin 30 PG (27-34); Mean Corpuscular Volume 93.7 FL (87-102); Mean Platelet Volume 10.9 FL (9.6-12.0); Monocytes # 0.8 10*3/uL (0.11-0.8); Monocytes % 8.2 % (1.7-12.7); Neutrophils # 7.7 10*3/uL (1.4-7.4); Neutrophils % 76.1 % (38.7-73.9); Platelet Count 266 T/CUMM (130-400); Red Blood Count 2.87 MC/CUMM (3.8-5.5); Red Cell Distribution Width 16.9 % (9.3-17.3); White Blood Count 10.2 T/CUMM (4-12)
[2018-01-27 06:13] LABS: Albumin 2.4 G/DL (3.4-5.0); Bilirubin,Total 0.7 MG/DL (0.2-1.0); Calcium 8.6 MG/DL (8.5-10.1); Osmolality,Calculated 278.7 MOS/KG (273-304); Potassium 4.2 MMOL/L (3.5-5.1); Total Protein 6.2 G/DL (6.4-8.3)
[2018-01-27] MEDS: ATENOLOL 25 MG TABLET PO SCH ×2 (10:48→21:57)
[2018-01-27] MEDS ORDERED: ceFAZolin 1,000 MG in SYRINGE 1 EACH IV ONE (11:00)
[2018-01-27] MEDS ORDERED: TRANEXAMIC ACID 1,000 MG/10 ML VIAL ONE (12:15)
[2018-01-27] MEDS ORDERED: MORPHINE 4 MG/1 ML VIAL IV PRN ×2 (12:20→12:35)
[2018-01-27] MEDS ORDERED: PROMETHAZINE 25 MG/1 ML VIAL IM PRN (12:20)
[2018-01-27] MEDS ORDERED: BISACODYL 10 MG SUPP RECTAL PRN (12:20)
[2018-01-27] MEDS ORDERED: diphenhydrAMINE CAP 25 MG CAPSULE PO PRN (12:20)
[2018-01-27] MEDS ORDERED: LACTULOSE 20 GM/30 ML UDCUP PO PRN (12:20)
[2018-01-27] MEDS ORDERED: MAGNESIUM HYDROXIDE SUSP 30 ML UDCUP PO PRN (12:20)
[2018-01-27] MEDS ORDERED: FUROSEMIDE 20 MG TABLET PO PRN (12:25)
[2018-01-27] MEDS ORDERED: SODIUM CHLORIDE 0.9% 1,000 ML IV PRN (13:53)
[2018-01-27] MEDS ORDERED: LIDOCAINE 1% 5 ML VIAL ONE (14:23)
[2018-01-27] MEDS ORDERED: SEVOFLURANE 1 UNIT/15 MINUTE INH ONE (14:23)
[2018-01-27] MEDS ORDERED: fentaNYL 100 MCG/2 ML VIAL ONE (14:24)
[2018-01-27] MEDS ORDERED: ETOMIDATE 40 MG/20 ML VIAL IV ONE (14:24)
[2018-01-27] MEDS ORDERED: ROCURONIUM 100 MG/10 ML VIAL IV ONE (14:24)
[2018-01-27] MEDS ORDERED: ACETAMINOPHEN 1,000 MG/100 ML VIAL IV ONE (14:24)
[2018-01-27] MEDS ORDERED: FUROSEMIDE 20 MG/2 ML VIAL ONE (14:24)
[2018-01-27] MEDS ORDERED: SODIUM CHLORIDE 0.9% 1,000 ML IV ONE (14:24)
[2018-01-27] MEDS: LORATADINE 10 MG TABLET PO SCH (15:46)
[2018-01-27] MEDS: POLYETHYLENE GLYCOL POWDER 17 GM PACK PO SCH (15:46)
[2018-01-27] MEDS: TIMOLOL 0.5% OPH SOLN 5 ML BOTTLE RIGHT EYE SCH (15:46)
[2018-01-27] MEDS: PANTOPRAZOLE 40 MG TABLET PO SCH (15:46)
[2018-01-27] MEDS: FUROSEMIDE 20 MG/2 ML VIAL IV SCH ×2 (15:46→17:48)
[2018-01-27] MEDS: FLUoxetine 20 MG CAPSULE PO SCH (15:46)
[2018-01-27] MEDS: TAMSULOSIN 0.4 MG CAPSULE PO SCH ×2 (15:47→21:57)
[2018-01-27] MEDS: DOCUSATE SODIUM 100 MG CAPSULE PO SCH ×3 (15:47→21:58)
[2018-01-27] MEDS: clonazePAM 0.5 MG TABLET PO SCH ×3 (15:47→21:57)
[2018-01-27] MEDS: cefTRIAXone 1,000 MG in SYRINGE 1 EACH IV SCH (17:49)
[2018-01-27] MEDS: ceFAZolin 1,000 MG in SYRINGE 1 EACH IV SCH (17:50)
[2018-01-27] MEDS: ATORVASTATIN 40 MG TABLET PO SCH (21:57)
[2018-01-27] MEDS: LATANOPROST 0.005% OPH SOLN 2.5 ML BOTTLE RIGHT EYE SCH (21:57)
[2018-01-27] MEDS: Melatonin [Melatonin] 5 MG PO SCH (21:58)
[2018-01-28] MEDS: ceFAZolin 1,000 MG in SYRINGE 1 EACH IV SCH ×3 (02:40→18:28)
[2018-01-28] MEDS: LACTATED RINGERS 1,000 ML IV SCH ×2 (03:09→11:13)
[2018-01-28 05:19] LABS: Basophils % 0.4 % (0.0-0.8); Eosinophils # 0.4 10*3/uL (0.0-0.87); Eosinophils % 3.3 % (0.00-10.9); Hematocrit 29.4 VOL% (42.0-52.0); Hemoglobin 9.9 GM/DL (14.0-18.0); Immature Granulocytes % 0.4 %; Immature Granulocytes Absolute 0.04 #; Lymphocytes # 0.7 10*3/uL (1.4-4.0); Lymphocytes % 6.1 % (21.2-54.2); Mean Corpuscular HGB Conc 33.7 GM/DL (32-36); Mean Corpuscular Hemoglobin 30 PG (27-34); Mean Corpuscular Volume 88.3 FL (87-102); Mean Platelet Volume 10.8 FL (9.6-12.0); Monocytes # 1.1 10*3/uL (0.11-0.8); Monocytes % 9.9 % (1.7-12.7); Neutrophils % 79.9 % (38.7-73.9); Platelet Count 220 T/CUMM (130-400); Red Blood Count 3.33 MC/CUMM (3.8-5.5); Red Cell Distribution Width 17.8 % (9.3-17.3); White Blood Count 11.2 T/CUMM (4-12)
[2018-01-28] MEDS: PANTOPRAZOLE 40 MG TABLET PO SCH (05:21)
[2018-01-28 05:32] LABS: Calcium 8.2 MG/DL (8.5-10.1); Potassium 3.6 MMOL/L (3.5-5.1)
[2018-01-28] MEDS: COLLAGENASE OINT 30 GM TUBE TOP SCH (09:30)
[2018-01-28] MEDS: LORATADINE 10 MG TABLET PO SCH (11:05)
[2018-01-28] MEDS: ASPIRIN EC 81 MG TABLET PO SCH (11:05)
[2018-01-28] MEDS: TIMOLOL 0.5% OPH SOLN 5 ML BOTTLE RIGHT EYE SCH (11:06)
[2018-01-28] MEDS: FLUoxetine 20 MG CAPSULE PO SCH (11:06)
[2018-01-28] MEDS: DOCUSATE SODIUM 100 MG CAPSULE PO SCH ×4 (11:07→20:46)
[2018-01-28] MEDS: clonazePAM 0.5 MG TABLET PO SCH ×3 (11:07→20:46)
[2018-01-28] MEDS: TAMSULOSIN 0.4 MG CAPSULE PO SCH ×2 (11:07→20:47)
[2018-01-28] MEDS: ATENOLOL 25 MG TABLET PO SCH ×2 (11:08→20:46)
[2018-01-28] MEDS: FUROSEMIDE 20 MG/2 ML VIAL IV SCH ×2 (11:13→16:44)
[2018-01-28] MEDS: POLYETHYLENE GLYCOL POWDER 17 GM PACK PO SCH (11:13)
[2018-01-28] MEDS: NITROGLYCERIN SL 0.4 MG TABLET SL PRN (12:13)
[2018-01-28] MEDS ORDERED: ACETAMINOPHEN 325 MG TABLET PO PRN (12:21)
[2018-01-28] MEDS ORDERED: ASPIRIN CHEW 81 MG TABLET PO ONE ×2 (12:27→13:00)
[2018-01-28] MEDS ORDERED: TUBERCULIN SKIN TEST 0.1 ML SYRINGE INTRADERM ONE (18:06)
[2018-01-28] MEDS: cefTRIAXone 1,000 MG in SYRINGE 1 EACH IV SCH (18:25)
[2018-01-28] MEDS: FONDAPARINUX 2.5 MG/0.5 ML SYRINGE SUBCUT SCH (20:45)
[2018-01-28] MEDS: LATANOPROST 0.005% OPH SOLN 2.5 ML BOTTLE RIGHT EYE SCH (20:45)
[2018-01-28] MEDS: TEMAZEPAM 7.5 MG CAPSULE PO PRN (20:46)
[2018-01-28] MEDS: ATORVASTATIN 40 MG TABLET PO SCH (20:47)
[2018-01-28] MEDS: Melatonin [Melatonin] 5 MG PO SCH (21:22)
[2018-01-29] MEDS: ONDANSETRON 4 MG/2 ML VIAL IV PRN ×2 (00:57→20:55)
[2018-01-29] MEDS: ceFAZolin 1,000 MG in SYRINGE 1 EACH IV SCH ×3 (01:26→18:37)
[2018-01-29 04:41] LABS: Basophils % 0.2 % (0.0-0.8); Eosinophils # 0.3 10*3/uL (0.0-0.87); Hematocrit 28.7 VOL% (42.0-52.0); Hemoglobin 9.3 GM/DL (14.0-18.0); Immature Granulocytes % 0.5 %; Immature Granulocytes Absolute 0.06 #; Lymphocytes # 0.9 10*3/uL (1.4-4.0); Lymphocytes % 7.4 % (21.2-54.2); Mean Corpuscular HGB Conc 32.4 GM/DL (32-36); Mean Corpuscular Hemoglobin 29 PG (27-34); Mean Corpuscular Volume 90.3 FL (87-102); Mean Platelet Volume 11.2 FL (9.6-12.0); Monocytes # 1.1 10*3/uL (0.11-0.8); Monocytes % 8.9 % (1.7-12.7); Platelet Count 222 T/CUMM (130-400); Red Blood Count 3.18 MC/CUMM (3.8-5.5); Red Cell Distribution Width 17.2 % (9.3-17.3); White Blood Count 12.4 T/CUMM (4-12)
[2018-01-29] MEDS: PANTOPRAZOLE 40 MG TABLET PO SCH (05:28)
[2018-01-29] MEDS: LACTATED RINGERS 1,000 ML IV SCH (05:42)
[2018-01-29] MEDS: DOCUSATE SODIUM 100 MG CAPSULE PO SCH ×4 (09:36→20:22)
[2018-01-29] MEDS: TAMSULOSIN 0.4 MG CAPSULE PO SCH ×2 (09:36→20:22)
[2018-01-29] MEDS: ATENOLOL 25 MG TABLET PO SCH ×2 (09:36→20:22)
[2018-01-29] MEDS: ASPIRIN EC 81 MG TABLET PO SCH (09:36)
[2018-01-29] MEDS: LORATADINE 10 MG TABLET PO SCH (09:37)
[2018-01-29] MEDS: FLUoxetine 20 MG CAPSULE PO SCH (09:37)
[2018-01-29] MEDS: POLYETHYLENE GLYCOL POWDER 17 GM PACK PO SCH (09:37)
[2018-01-29] MEDS: FUROSEMIDE 20 MG/2 ML VIAL IV SCH ×2 (09:37→15:58)
[2018-01-29] MEDS: clonazePAM 0.5 MG TABLET PO SCH ×3 (09:41→20:22)
[2018-01-29] MEDS: TIMOLOL 0.5% OPH SOLN 5 ML BOTTLE RIGHT EYE SCH (09:41)
[2018-01-29] MEDS: AMPICILLIN INJ 1,000 MG in SODIUM CHLORIDE 0.9% 100 ML IV SCH ×2 (12:09→18:37)
[2018-01-29] MEDS: COLLAGENASE OINT 30 GM TUBE TOP SCH (14:53)
[2018-01-29] MEDS: Melatonin [Melatonin] 5 MG PO SCH (20:21)
[2018-01-29] MEDS: ATORVASTATIN 40 MG TABLET PO SCH (20:22)
[2018-01-29] MEDS: LATANOPROST 0.005% OPH SOLN 2.5 ML BOTTLE RIGHT EYE SCH (20:22)
[2018-01-29] MEDS: FONDAPARINUX 2.5 MG/0.5 ML SYRINGE SUBCUT SCH (20:22)
[2018-01-30] MEDS: AMPICILLIN INJ 1,000 MG in SODIUM CHLORIDE 0.9% 100 ML IV SCH ×4 (00:35→17:23)
[2018-01-30] MEDS: ceFAZolin 1,000 MG in SYRINGE 1 EACH IV SCH ×3 (01:24→18:36)
[2018-01-30] MEDS: LACTATED RINGERS 1,000 ML IV SCH ×2 (01:25→20:20)
[2018-01-30 04:57] LABS: Basophils % 0.2 % (0.0-0.8); Eosinophils # 0.4 10*3/uL (0.0-0.87); Eosinophils % 3.9 % (0.00-10.9); Hematocrit 28.3 VOL% (42.0-52.0); Hemoglobin 9.5 GM/DL (14.0-18.0); Immature Granulocytes % 0.5 %; Immature Granulocytes Absolute 0.05 #; Lymphocytes % 10.3 % (21.2-54.2); Mean Corpuscular HGB Conc 33.6 GM/DL (32-36); Mean Corpuscular Hemoglobin 30 PG (27-34); Mean Corpuscular Volume 89.8 FL (87-102); Monocytes # 0.9 10*3/uL (0.11-0.8); Monocytes % 9.6 % (1.7-12.7); Neutrophils # 7.3 10*3/uL (1.4-7.4); Neutrophils % 75.5 % (38.7-73.9); Platelet Count 234 T/CUMM (130-400); Red Blood Count 3.15 MC/CUMM (3.8-5.5); White Blood Count 9.6 T/CUMM (4-12)
[2018-01-30] MEDS: PANTOPRAZOLE 40 MG TABLET PO SCH (05:15)
[2018-01-30 05:36] LABS: Calcium 8.1 MG/DL (8.5-10.1); Potassium 3.5 MMOL/L (3.5-5.1)
[2018-01-30] MEDS: POLYETHYLENE GLYCOL POWDER 17 GM PACK PO SCH (08:36)
[2018-01-30] MEDS: TAMSULOSIN 0.4 MG CAPSULE PO SCH ×2 (08:37→20:31)
[2018-01-30] MEDS: ASPIRIN EC 81 MG TABLET PO SCH (08:37)
[2018-01-30] MEDS: ATENOLOL 25 MG TABLET PO SCH ×2 (08:37→20:31)
[2018-01-30] MEDS: FLUoxetine 20 MG CAPSULE PO SCH (08:37)
[2018-01-30] MEDS: LORATADINE 10 MG TABLET PO SCH (08:37)
[2018-01-30] MEDS: FUROSEMIDE 20 MG/2 ML VIAL IV SCH ×2 (08:37→15:34)
[2018-01-30] MEDS: clonazePAM 0.5 MG TABLET PO SCH ×3 (08:37→20:30)
[2018-01-30] MEDS: TIMOLOL 0.5% OPH SOLN 5 ML BOTTLE RIGHT EYE SCH (08:38)
[2018-01-30] MEDS: DOCUSATE SODIUM 100 MG CAPSULE PO SCH ×4 (08:39→20:30)
[2018-01-30] MEDS: COLLAGENASE OINT 30 GM TUBE TOP SCH (09:34)
[2018-01-30] MEDS: Melatonin [Melatonin] 5 MG PO SCH (20:20)
[2018-01-30] MEDS: ATORVASTATIN 40 MG TABLET PO SCH (20:30)
[2018-01-30] MEDS: FONDAPARINUX 2.5 MG/0.5 ML SYRINGE SUBCUT SCH (20:30)
[2018-01-30] MEDS: LATANOPROST 0.005% OPH SOLN 2.5 ML BOTTLE RIGHT EYE SCH (20:31)
[2018-01-31] MEDS: AMPICILLIN INJ 1,000 MG in SODIUM CHLORIDE 0.9% 100 ML IV SCH ×4 (00:50→18:30)
[2018-01-31] MEDS: ceFAZolin 1,000 MG in SYRINGE 1 EACH IV SCH ×3 (02:04→18:25)
[2018-01-31 04:11] LABS: Basophils % 0.4 % (0.0-0.8); Eosinophils # 0.3 10*3/uL (0.0-0.87); Eosinophils % 4.5 % (0.00-10.9); Hematocrit 28.4 VOL% (42.0-52.0); Hemoglobin 9.1 GM/DL (14.0-18.0); Immature Granulocytes % 0.7 %; Immature Granulocytes Absolute 0.05 #; Lymphocytes # 0.9 10*3/uL (1.4-4.0); Mean Corpuscular Hemoglobin 29 PG (27-34); Mean Platelet Volume 10.8 FL (9.6-12.0); Monocytes % 12.7 % (1.7-12.7); Neutrophils # 5.3 10*3/uL (1.4-7.4); Neutrophils % 69.7 % (38.7-73.9); Platelet Count 242 T/CUMM (130-400); Red Blood Count 3.12 MC/CUMM (3.8-5.5); Red Cell Distribution Width 16.8 % (9.3-17.3); White Blood Count 7.6 T/CUMM (4-12)
[2018-01-31 04:55] LABS: Calcium 8.1 MG/DL (8.5-10.1); Osmolality,Calculated 278.8 MOS/KG (273-304); Potassium 3.5 MMOL/L (3.5-5.1)
[2018-01-31] MEDS: PANTOPRAZOLE 40 MG TABLET PO SCH (05:50)
[2018-01-31] MEDS: clonazePAM 0.5 MG TABLET PO SCH ×3 (10:38→20:50)
[2018-01-31] MEDS: POLYETHYLENE GLYCOL POWDER 17 GM PACK PO SCH (10:38)
[2018-01-31] MEDS: LORATADINE 10 MG TABLET PO SCH (10:38)
[2018-01-31] MEDS: FLUoxetine 20 MG CAPSULE PO SCH (10:38)
[2018-01-31] MEDS: ATENOLOL 25 MG TABLET PO SCH ×2 (10:38→20:50)
[2018-01-31] MEDS: TAMSULOSIN 0.4 MG CAPSULE PO SCH ×2 (10:38→20:50)
[2018-01-31] MEDS: ASPIRIN EC 81 MG TABLET PO SCH (10:38)
[2018-01-31] MEDS: TIMOLOL 0.5% OPH SOLN 5 ML BOTTLE RIGHT EYE SCH (10:38)
[2018-01-31] MEDS: DOCUSATE SODIUM 100 MG CAPSULE PO SCH ×4 (10:38→20:50)
[2018-01-31] MEDS: FUROSEMIDE 20 MG/2 ML VIAL IV SCH ×2 (11:16→16:45)
[2018-01-31] MEDS: COLLAGENASE OINT 30 GM TUBE TOP SCH (13:45)
[2018-01-31] MEDS: LACTATED RINGERS 1,000 ML IV SCH (16:45)
[2018-01-31] MEDS: LATANOPROST 0.005% OPH SOLN 2.5 ML BOTTLE RIGHT EYE SCH (20:49)
[2018-01-31] MEDS: ATORVASTATIN 40 MG TABLET PO SCH (20:50)
[2018-01-31] MEDS: TEMAZEPAM 7.5 MG CAPSULE PO PRN (20:50)
[2018-01-31] MEDS: Melatonin [Melatonin] 5 MG PO SCH (20:51)
[2018-01-31] MEDS: FONDAPARINUX 2.5 MG/0.5 ML SYRINGE SUBCUT SCH (20:51)
[2018-02-01] MEDS: AMPICILLIN INJ 1,000 MG in SODIUM CHLORIDE 0.9% 100 ML IV SCH ×4 (00:38→18:30)
[2018-02-01] MEDS: ceFAZolin 1,000 MG in SYRINGE 1 EACH IV SCH ×3 (02:30→17:45)
[2018-02-01 05:44] LABS: Basophils % 0.3 % (0.0-0.8); Eosinophils # 0.3 10*3/uL (0.0-0.87); Eosinophils % 2.7 % (0.00-10.9); Hematocrit 27.5 VOL% (42.0-52.0); Immature Granulocytes % 0.8 %; Immature Granulocytes Absolute 0.08 #; Lymphocytes % 10.1 % (21.2-54.2); Mean Corpuscular HGB Conc 32.7 GM/DL (32-36); Mean Corpuscular Hemoglobin 29 PG (27-34); Mean Corpuscular Volume 89.9 FL (87-102); Mean Platelet Volume 10.9 FL (9.6-12.0); Monocytes # 1.1 10*3/uL (0.11-0.8); Monocytes % 11.3 % (1.7-12.7); Neutrophils # 7.2 10*3/uL (1.4-7.4); Neutrophils % 74.8 % (38.7-73.9); Platelet Count 263 T/CUMM (130-400); Red Blood Count 3.06 MC/CUMM (3.8-5.5); White Blood Count 9.6 T/CUMM (4-12)
[2018-02-01 06:18] LABS: Calcium 8.4 MG/DL (8.5-10.1); Osmolality,Calculated 279.7 MOS/KG (273-304); Potassium 3.3 MMOL/L (3.5-5.1)
[2018-02-01] MEDS: PANTOPRAZOLE 40 MG TABLET PO SCH (06:44)
[2018-02-01] MEDS ORDERED: ceFAZolin 1,000 MG in SYRINGE 1 EACH IV ONE (09:34)
[2018-02-01] MEDS ORDERED: MIDAZOLAM 2 MG/2 ML VIAL IV ONE (09:34)
[2018-02-01] MEDS ORDERED: fentaNYL 100 MCG/2 ML VIAL IV ONE (09:34)
[2018-02-01] MEDS ORDERED: HEPARIN/NACL 0.9% 2 UNITS/ML 1,000 ML IV ONE (09:39)
[2018-02-01] MEDS: ASPIRIN EC 81 MG TABLET PO SCH (09:40)
[2018-02-01] MEDS: COLLAGENASE OINT 30 GM TUBE TOP SCH (09:40)
[2018-02-01] MEDS: TAMSULOSIN 0.4 MG CAPSULE PO SCH ×2 (09:40→20:56)
[2018-02-01] MEDS: FLUoxetine 20 MG CAPSULE PO SCH (09:40)
[2018-02-01] MEDS: clonazePAM 0.5 MG TABLET PO SCH ×3 (09:40→20:56)
[2018-02-01] MEDS: LORATADINE 10 MG TABLET PO SCH (09:40)
[2018-02-01] MEDS: DOCUSATE SODIUM 100 MG CAPSULE PO SCH ×4 (09:40→20:57)
[2018-02-01] MEDS: POLYETHYLENE GLYCOL POWDER 17 GM PACK PO SCH (09:40)
[2018-02-01] MEDS ORDERED: DIAZEPAM 5 MG TABLET PO ONE (09:50)
[2018-02-01] MEDS: FUROSEMIDE 20 MG/2 ML VIAL IV SCH ×2 (10:02→15:25)
[2018-02-01] MEDS: ATENOLOL 25 MG TABLET PO SCH ×2 (10:05→20:57)
[2018-02-01] MEDS: SODIUM CHLORIDE 0.45% 1,000 ML IV SCH (10:05)
[2018-02-01] MEDS: TIMOLOL 0.5% OPH SOLN 5 ML BOTTLE RIGHT EYE SCH (10:05)
[2018-02-01] MEDS ORDERED: MIDAZOLAM 2 MG/2 ML VIAL ONE ×2 (10:07→11:24)
[2018-02-01] MEDS ORDERED: fentaNYL 100 MCG/2 ML VIAL ONE (10:07)
[2018-02-01] MEDS ORDERED: HEPARIN 5,000 UNIT/1 ML VIAL ONE (10:08)
[2018-02-01] MEDS: LACTATED RINGERS 1,000 ML IV SCH (12:30)
[2018-02-01] MEDS: POTASSIUM CHLORIDE RIDER 10 MEQ in PREMIX 1 EACH IV PRN ×4 (12:45→17:15)
[2018-02-01] MEDS: FONDAPARINUX 2.5 MG/0.5 ML SYRINGE SUBCUT SCH (20:55)
[2018-02-01] MEDS: LATANOPROST 0.005% OPH SOLN 2.5 ML BOTTLE RIGHT EYE SCH (20:56)
[2018-02-01] MEDS: ATORVASTATIN 40 MG TABLET PO SCH (20:57)
[2018-02-01] MEDS ORDERED: LATANOPROST 0.005% OPH SOLN 2.5 ML BOTTLE RIGHT EYE SCH (21:00)
[2018-02-01] MEDS: Melatonin [Melatonin] 5 MG PO SCH (21:07)
[2018-02-02] MEDS: AMPICILLIN INJ 1,000 MG in SODIUM CHLORIDE 0.9% 100 ML IV SCH ×4 (00:37→21:55)
[2018-02-02] MEDS: ceFAZolin 1,000 MG in SYRINGE 1 EACH IV SCH ×3 (01:41→18:41)
[2018-02-02] MEDS: PANTOPRAZOLE 40 MG TABLET PO SCH (05:50)
[2018-02-02 06:41] LABS: Basophils % 0.4 % (0.0-0.8); Eosinophils # 0.2 10*3/uL (0.0-0.87); Hematocrit 28.2 VOL% (42.0-52.0); Hemoglobin 9.2 GM/DL (14.0-18.0); Immature Granulocytes % 0.8 %; Immature Granulocytes Absolute 0.08 #; Lymphocytes # 0.7 10*3/uL (1.4-4.0); Lymphocytes % 7.2 % (21.2-54.2); Mean Corpuscular HGB Conc 32.6 GM/DL (32-36); Mean Corpuscular Hemoglobin 29 PG (27-34); Mean Corpuscular Volume 89.5 FL (87-102); Mean Platelet Volume 10.6 FL (9.6-12.0); Monocytes # 0.9 10*3/uL (0.11-0.8); Monocytes % 8.9 % (1.7-12.7); Neutrophils # 8.3 10*3/uL (1.4-7.4); Neutrophils % 80.7 % (38.7-73.9); Platelet Count 295 T/CUMM (130-400); Red Blood Count 3.15 MC/CUMM (3.8-5.5); Red Cell Distribution Width 16.9 % (9.3-17.3); White Blood Count 10.3 T/CUMM (4-12)
[2018-02-02 07:01] LABS: Albumin 1.9 G/DL (3.4-5.0); Bilirubin,Total 0.6 MG/DL (0.2-1.0); Calcium 8.1 MG/DL (8.5-10.1); Osmolality,Calculated 283.4 MOS/KG (273-304); Potassium 3.9 MMOL/L (3.5-5.1); Total Protein 5.7 G/DL (6.4-8.3)
[2018-02-02] MEDS: clonazePAM 0.5 MG TABLET PO SCH ×3 (10:32→21:50)
[2018-02-02] MEDS: DOCUSATE SODIUM 100 MG CAPSULE PO SCH ×4 (10:33→21:51)
[2018-02-02] MEDS: FLUoxetine 20 MG CAPSULE PO SCH (10:33)
[2018-02-02] MEDS: POLYETHYLENE GLYCOL POWDER 17 GM PACK PO SCH (10:33)
[2018-02-02] MEDS: ATENOLOL 25 MG TABLET PO SCH ×2 (10:34→21:50)
[2018-02-02] MEDS: TAMSULOSIN 0.4 MG CAPSULE PO SCH ×2 (10:34→21:50)
[2018-02-02] MEDS: ASPIRIN EC 81 MG TABLET PO SCH (10:34)
[2018-02-02] MEDS: LORATADINE 10 MG TABLET PO SCH (10:36)
[2018-02-02] MEDS: FUROSEMIDE 20 MG/2 ML VIAL IV SCH ×2 (10:37→15:59)
[2018-02-02] MEDS: LACTATED RINGERS 1,000 ML IV SCH (10:51)
[2018-02-02] MEDS: SODIUM CHLORIDE 0.45% 1,000 ML IV SCH (10:51)
[2018-02-02] MEDS: TIMOLOL 0.5% OPH SOLN 5 ML BOTTLE RIGHT EYE SCH (15:58)
[2018-02-02] MEDS: COLLAGENASE OINT 30 GM TUBE TOP SCH (18:33)
[2018-02-02] MEDS: ATORVASTATIN 40 MG TABLET PO SCH (21:50)
[2018-02-02] MEDS: Melatonin [Melatonin] 5 MG PO SCH (21:51)
[2018-02-02] MEDS: FONDAPARINUX 2.5 MG/0.5 ML SYRINGE SUBCUT SCH (21:51)
[2018-02-02] MEDS: LATANOPROST 0.005% OPH SOLN 2.5 ML BOTTLE RIGHT EYE SCH (21:55)
[2018-02-03] MEDS: ceFAZolin 1,000 MG in SYRINGE 1 EACH IV SCH ×3 (02:45→19:14)
[2018-02-03] MEDS: AMPICILLIN INJ 1,000 MG in SODIUM CHLORIDE 0.9% 100 ML IV SCH ×4 (04:20→21:27)
[2018-02-03] MEDS: LACTATED RINGERS 1,000 ML IV SCH ×2 (05:25→19:18)
[2018-02-03] MEDS ORDERED: VANCOMYCIN INJ 1,000 MG in SODIUM CHLORIDE 0.9% 250 ML IV ONE (06:00)
[2018-02-03] MEDS: PANTOPRAZOLE 40 MG TABLET PO SCH (06:01)
[2018-02-03 06:06] LABS: Basophils # 0.1 10*3/uL (0.0-0.2); Basophils % 0.4 % (0.0-0.8); Eosinophils # 0.3 10*3/uL (0.0-0.87); Eosinophils % 2.5 % (0.00-10.9); Hematocrit 29.9 VOL% (42.0-52.0); Hemoglobin 9.8 GM/DL (14.0-18.0); Immature Granulocytes % 0.7 %; Immature Granulocytes Absolute 0.08 #; Lymphocytes # 1.7 10*3/uL (1.4-4.0); Lymphocytes % 14.2 % (21.2-54.2); Mean Corpuscular HGB Conc 32.8 GM/DL (32-36); Mean Corpuscular Hemoglobin 30 PG (27-34); Mean Corpuscular Volume 90.3 FL (87-102); Mean Platelet Volume 11.3 FL (9.6-12.0); Monocytes # 1.1 10*3/uL (0.11-0.8); Monocytes % 8.8 % (1.7-12.7); Neutrophils # 8.9 10*3/uL (1.4-7.4); Neutrophils % 73.4 % (38.7-73.9); Platelet Count 379 T/CUMM (130-400); Red Blood Count 3.31 MC/CUMM (3.8-5.5); Red Cell Distribution Width 16.9 % (9.3-17.3); White Blood Count 12.1 T/CUMM (4-12)
[2018-02-03 06:19] LABS: Albumin 2.1 G/DL (3.4-5.0); Bilirubin,Total 0.8 MG/DL (0.2-1.0); Calcium 8.5 MG/DL (8.5-10.1); Osmolality,Calculated 282.5 MOS/KG (273-304); Potassium 3.7 MMOL/L (3.5-5.1); Total Protein 6.3 G/DL (6.4-8.3)
[2018-02-03] MEDS ORDERED: THROMBIN TOPICAL (RECOMBINANT) 5,000 UNIT VIAL TOP ONE (06:28)
[2018-02-03] MEDS ORDERED: HEPARIN 5,000 UNIT/1 ML VIAL ONE (06:28)
[2018-02-03] MEDS: FLUoxetine 20 MG CAPSULE PO SCH (08:00)
[2018-02-03] MEDS: LORATADINE 10 MG TABLET PO SCH (08:00)
[2018-02-03] MEDS: POLYETHYLENE GLYCOL POWDER 17 GM PACK PO SCH (08:00)
[2018-02-03] MEDS: DOCUSATE SODIUM 100 MG CAPSULE PO SCH ×4 (09:00→21:22)
[2018-02-03] MEDS: TAMSULOSIN 0.4 MG CAPSULE PO SCH ×2 (09:00→21:22)
[2018-02-03] MEDS: ATENOLOL 25 MG TABLET PO SCH ×2 (09:03→21:22)
[2018-02-03] MEDS ORDERED: LIDOCAINE 2% TOP JELLY 20 ML VIAL INTRAURETH ONE (10:14)
[2018-02-03 12:30] LABS: Apearance,Urine CLEAR (Clear); Bilirubin,Urine Negative (Negative); Blood, Urine Negative (Negative); Glucose,Urine (UA) Negative (Negative); Ketones,Urine Negative (Negative); Nitrite,Urine Negative (Negative); Protein,Urine Negative; RBC,Urine <1 /HPF (0-4); Urine Color Yellow (Yellow); Urine Specific Gravity 1.011 (1.001-1.035); Urine Urobilinogen < 2.0 EU/DL (0.2-1.0); WBC,Urine <1 /HPF (0-6)
[2018-02-03] MEDS ORDERED: ONDANSETRON 4 MG/2 ML VIAL ONE (12:31)
[2018-02-03] MEDS ORDERED: DESFLURANE 1 UNIT/15 MINUTE INH ONE (12:31)
[2018-02-03] MEDS ORDERED: ETOMIDATE 40 MG/20 ML VIAL IV ONE (12:31)
[2018-02-03] MEDS ORDERED: fentaNYL 100 MCG/2 ML VIAL ONE (12:31)
[2018-02-03] MEDS ORDERED: PHENYLEPHRINE 10 MG/1 ML VIAL IV ONE (12:31)
[2018-02-03] MEDS ORDERED: PROPOFOL 200 MG/20 ML VIAL IV ONE (12:31)
[2018-02-03] MEDS ORDERED: EPINEPHrine 1 MG/ML VIAL ONE (12:31)
[2018-02-03] MEDS ORDERED: ROCURONIUM 100 MG/10 ML VIAL IV ONE (12:32)
[2018-02-03] MEDS ORDERED: LACTATED RINGERS 1,000 ML IV ONE (12:32)
[2018-02-03] MEDS ORDERED: GLYCOPYRROLATE 0.4 MG/2 ML VIAL ONE (12:32)
[2018-02-03] MEDS ORDERED: NEOSTIGMINE 10 MG/10 ML VIAL ONE (12:32)
[2018-02-03] MEDS ORDERED: SODIUM CHLORIDE 0.9% 500 ML IV ONE (12:32)
[2018-02-03] MEDS: FUROSEMIDE 20 MG/2 ML VIAL IV SCH ×2 (14:00→16:10)
[2018-02-03] MEDS: TIMOLOL 0.5% OPH SOLN 5 ML BOTTLE RIGHT EYE SCH (14:01)
[2018-02-03] MEDS: COLLAGENASE OINT 30 GM TUBE TOP SCH (14:03)
[2018-02-03] MEDS: SODIUM CHLORIDE 0.45% 1,000 ML IV SCH (14:04)
[2018-02-03] MEDS: ASPIRIN EC 81 MG TABLET PO SCH (14:06)
[2018-02-03] MEDS: FONDAPARINUX 2.5 MG/0.5 ML SYRINGE SUBCUT SCH (21:21)
[2018-02-03] MEDS: LATANOPROST 0.005% OPH SOLN 2.5 ML BOTTLE RIGHT EYE SCH (21:22)
[2018-02-03] MEDS: Melatonin [Melatonin] 5 MG PO SCH (21:22)
[2018-02-03] MEDS: ATORVASTATIN 40 MG TABLET PO SCH (21:22)
[2018-02-04] MEDS: LACTATED RINGERS 1,000 ML IV SCH (01:17)
[2018-02-04] MEDS: ceFAZolin 1,000 MG in SYRINGE 1 EACH IV SCH (03:02)
[2018-02-04] MEDS: AMPICILLIN INJ 1,000 MG in SODIUM CHLORIDE 0.9% 100 ML IV SCH (03:10)
[2018-02-04] MEDS ORDERED: ENOXAPARIN 40 MG/0.4 ML SYRINGE SUBCUT SCH (06:00)
[2018-02-04] MEDS: PANTOPRAZOLE 40 MG TABLET PO SCH (06:44)
[2018-02-04] MEDS: ATENOLOL 25 MG TABLET PO SCH ×2 (09:24→21:50)
[2018-02-04] MEDS: ASPIRIN CHEW 81 MG TABLET PO SCH (09:28)
[2018-02-04] MEDS: oxyCODONE/ACETAMINOPHEN 5-325 MG TABLET PO PRN ×2 (09:28→14:38)
[2018-02-04] MEDS: TAMSULOSIN 0.4 MG CAPSULE PO SCH ×2 (09:42→21:52)
[2018-02-04] MEDS: LORATADINE 10 MG TABLET PO SCH (09:42)
[2018-02-04] MEDS: TIMOLOL 0.5% OPH SOLN 5 ML BOTTLE RIGHT EYE SCH (09:43)
[2018-02-04] MEDS: FLUoxetine 20 MG CAPSULE PO SCH (09:43)
[2018-02-04] MEDS: FUROSEMIDE 20 MG/2 ML VIAL IV SCH ×2 (10:27→20:11)
[2018-02-04] MEDS: POLYETHYLENE GLYCOL POWDER 17 GM PACK PO SCH (10:30)
[2018-02-04] MEDS: DOCUSATE SODIUM 100 MG CAPSULE PO SCH ×2 (10:30)
[2018-02-04 13:52] LABS: Basophils % 0.3 % (0.0-0.8); Eosinophils # 0.2 10*3/uL (0.0-0.87); Eosinophils % 1.9 % (0.00-10.9); Hemoglobin 8.1 GM/DL (14.0-18.0); Immature Granulocytes % 0.8 %; Immature Granulocytes Absolute 0.09 #; Lymphocytes # 0.9 10*3/uL (1.4-4.0); Lymphocytes % 7.8 % (21.2-54.2); Mean Corpuscular HGB Conc 31.2 GM/DL (32-36); Mean Corpuscular Hemoglobin 29 PG (27-34); Mean Corpuscular Volume 93.2 FL (87-102); Mean Platelet Volume 10.8 FL (9.6-12.0); Monocytes # 0.9 10*3/uL (0.11-0.8); Neutrophils # 9.5 10*3/uL (1.4-7.4); Neutrophils % 81.2 % (38.7-73.9); Platelet Count 332 T/CUMM (130-400); Red Blood Count 2.79 MC/CUMM (3.8-5.5); Red Cell Distribution Width 16.7 % (9.3-17.3); White Blood Count 11.6 T/CUMM (4-12)
[2018-02-04] MEDS ORDERED: LIDOCAINE 1%/EPI INJ 20 ML VIAL MISC INJ STA (13:53)
[2018-02-04] MEDS: COLLAGENASE OINT 30 GM TUBE TOP SCH (20:11)
[2018-02-04] MEDS: FONDAPARINUX 2.5 MG/0.5 ML SYRINGE SUBCUT SCH (21:50)
[2018-02-04] MEDS: ATORVASTATIN 40 MG TABLET PO SCH (21:50)
[2018-02-04] MEDS: LATANOPROST 0.005% OPH SOLN 2.5 ML BOTTLE RIGHT EYE SCH (21:57)
[2018-02-04] MEDS: Melatonin [Melatonin] 5 MG PO SCH (21:57)
[2018-02-05] MEDS: DOCUSATE SODIUM 100 MG CAPSULE PO SCH ×6 (01:39→22:23)
[2018-02-05 05:17] LABS: Basophils % 0.3 % (0.0-0.8); Eosinophils # 0.3 10*3/uL (0.0-0.87); Eosinophils % 3.2 % (0.00-10.9); Hematocrit 23.4 VOL% (42.0-52.0); Hemoglobin 7.7 GM/DL (14.0-18.0); Immature Granulocytes % 0.5 %; Immature Granulocytes Absolute 0.05 #; Lymphocytes # 1.2 10*3/uL (1.4-4.0); Lymphocytes % 11.5 % (21.2-54.2); Mean Corpuscular HGB Conc 32.9 GM/DL (32-36); Mean Corpuscular Hemoglobin 29 PG (27-34); Mean Corpuscular Volume 89.3 FL (87-102); Mean Platelet Volume 10.8 FL (9.6-12.0); Monocytes # 0.9 10*3/uL (0.11-0.8); Monocytes % 8.8 % (1.7-12.7); Neutrophils # 7.5 10*3/uL (1.4-7.4); Neutrophils % 75.7 % (38.7-73.9); Platelet Count 322 T/CUMM (130-400); Red Blood Count 2.62 MC/CUMM (3.8-5.5); Red Cell Distribution Width 16.6 % (9.3-17.3)
[2018-02-05] MEDS: PANTOPRAZOLE 40 MG TABLET PO SCH (05:44)
[2018-02-05] MEDS: oxyCODONE/ACETAMINOPHEN 5-325 MG TABLET PO PRN ×2 (05:44→15:20)
[2018-02-05 05:45] LABS: Albumin 1.7 G/DL (3.4-5.0); Bilirubin,Total 0.5 MG/DL (0.2-1.0); Calcium 8.2 MG/DL (8.5-10.1); Osmolality,Calculated 278.7 MOS/KG (273-304); Potassium 3.8 MMOL/L (3.5-5.1); Total Protein 5.8 G/DL (6.4-8.3)
[2018-02-05] MEDS ORDERED: SODIUM CHLORIDE 0.9% 1,000 ML IV PRN (07:38)
[2018-02-05] MEDS ORDERED: FUROSEMIDE 20 MG/2 ML VIAL IV ONE (07:41)
[2018-02-05 08:10] LABS: Hematocrit 22.8 VOL% (42.0-52.0); Hemoglobin 7.4 GM/DL (14.0-18.0)
[2018-02-05] MEDS: TAMSULOSIN 0.4 MG CAPSULE PO SCH ×2 (09:43→22:16)
[2018-02-05] MEDS: POLYETHYLENE GLYCOL POWDER 17 GM PACK PO SCH (09:43)
[2018-02-05] MEDS: LORATADINE 10 MG TABLET PO SCH (09:43)
[2018-02-05] MEDS: FUROSEMIDE 20 MG/2 ML VIAL IV SCH ×2 (09:43→16:55)
[2018-02-05] MEDS: ATENOLOL 25 MG TABLET PO SCH ×2 (09:43→22:17)
[2018-02-05] MEDS: FLUoxetine 20 MG CAPSULE PO SCH (09:43)
[2018-02-05] MEDS: ASPIRIN CHEW 81 MG TABLET PO SCH (09:44)
[2018-02-05] MEDS: TIMOLOL 0.5% OPH SOLN 5 ML BOTTLE RIGHT EYE SCH (09:45)
[2018-02-05] MEDS: COLLAGENASE OINT 30 GM TUBE TOP SCH (14:05)
[2018-02-05] MEDS: Melatonin [Melatonin] 5 MG PO SCH (22:16)
[2018-02-05] MEDS: ATORVASTATIN 40 MG TABLET PO SCH (22:16)
[2018-02-05] MEDS: LATANOPROST 0.005% OPH SOLN 2.5 ML BOTTLE RIGHT EYE SCH (22:17)
[2018-02-05] MEDS: FONDAPARINUX 2.5 MG/0.5 ML SYRINGE SUBCUT SCH (22:17)
[2018-02-06 05:12] LABS: Basophils # 0.1 10*3/uL (0.0-0.2); Basophils % 0.5 % (0.0-0.8); Eosinophils # 0.4 10*3/uL (0.0-0.87); Hematocrit 31.3 VOL% (42.0-52.0); Immature Granulocytes % 0.6 %; Immature Granulocytes Absolute 0.06 #; Lymphocytes # 1.1 10*3/uL (1.4-4.0); Lymphocytes % 11.2 % (21.2-54.2); Mean Corpuscular HGB Conc 33.9 GM/DL (32-36); Mean Corpuscular Hemoglobin 30 PG (27-34); Mean Corpuscular Volume 88.4 FL (87-102); Mean Platelet Volume 10.7 FL (9.6-12.0); Monocytes # 0.8 10*3/uL (0.11-0.8); Monocytes % 8.3 % (1.7-12.7); Neutrophils # 7.3 10*3/uL (1.4-7.4); Neutrophils % 75.4 % (38.7-73.9); Platelet Count 318 T/CUMM (130-400); Red Blood Count 3.54 MC/CUMM (3.8-5.5); Red Cell Distribution Width 15.9 % (9.3-17.3); White Blood Count 9.7 T/CUMM (4-12)
[2018-02-06 05:20] LABS: Hemoglobin 10.6 GM/DL (14.0-18.0)
[2018-02-06] MEDS ORDERED: ASPIRIN 325 MG TABLET ONE (05:23)
[2018-02-06] MEDS: NITROGLYCERIN SL 0.4 MG TABLET SL PRN (05:24)
[2018-02-06] MEDS ORDERED: MORPHINE 4 MG/1 ML VIAL IV ONE (05:28)
[2018-02-06] MEDS ORDERED: ALUM/MAG/SIMETH/LIDO VISC 1:1 30 ML BOTTLE PO ONE (05:34)
[2018-02-06] MEDS ORDERED: ALUM/MAG/SIMETH/LIDO VISC 1:1 30 ML BOTTLE PO PRN (06:03)
[2018-02-06 06:25] LABS: Troponin I Only < 0.015 NG/ML (0.00-0.045)
[2018-02-06] MEDS: PANTOPRAZOLE 40 MG TABLET PO SCH (06:43)
[2018-02-06] MEDS ORDERED: MAGNESIUM HYDROXIDE SUSP 30 ML UDCUP PO ONE (06:56)
[2018-02-06] MEDS ORDERED: BISACODYL 5 MG TABLET PO ONE (06:56)
[2018-02-06] MEDS ORDERED: LACTULOSE 20 GM/30 ML UDCUP PO ONE (06:57)
[2018-02-06] MEDS ORDERED: ASPIRIN CHEW 81 MG TABLET PO ONE (07:14)
[2018-02-06] MEDS: DOCUSATE SODIUM 100 MG CAPSULE PO SCH ×4 (09:00→21:57)
[2018-02-06] MEDS: FUROSEMIDE 20 MG/2 ML VIAL IV SCH ×2 (10:27→18:21)
[2018-02-06] MEDS: LORATADINE 10 MG TABLET PO SCH (10:27)
[2018-02-06] MEDS: TAMSULOSIN 0.4 MG CAPSULE PO SCH ×2 (10:28→21:58)
[2018-02-06] MEDS: ASPIRIN CHEW 81 MG TABLET PO SCH (10:28)
[2018-02-06] MEDS: FLUoxetine 20 MG CAPSULE PO SCH (10:28)
[2018-02-06] MEDS: ATENOLOL 25 MG TABLET PO SCH ×2 (10:29→21:58)
[2018-02-06] MEDS: oxyCODONE/ACETAMINOPHEN 5-325 MG TABLET PO PRN ×2 (10:29→21:44)
[2018-02-06] MEDS: POLYETHYLENE GLYCOL POWDER 17 GM PACK PO SCH (10:33)
[2018-02-06] MEDS: TIMOLOL 0.5% OPH SOLN 5 ML BOTTLE RIGHT EYE SCH (10:38)
[2018-02-06] MEDS: COLLAGENASE OINT 30 GM TUBE TOP SCH (11:19)
[2018-02-06 13:42] LABS: Apearance,Urine CLEAR (Clear); Bilirubin,Urine Negative (Negative); Blood, Urine Small mg/dL (Negative); Glucose,Urine (UA) Negative (Negative); Ketones,Urine Negative (Negative); Mucus,Urine Occasional /LPF (Occasional); Nitrite,Urine Negative (Negative); Protein,Urine Negative; RBC,Urine 4 /HPF (0-4); Squamous Epithelial Cell,Urine Occasional /HPF (0-10); Urine Color Straw (Yellow); Urine Specific Gravity 1.006 (1.001-1.035); Urine Urobilinogen < 2.0 EU/DL (0.2-1.0); WBC,Urine 3 /HPF (0-6)
[2018-02-06] MEDS ORDERED: AMOXICILLIN 500 MG CAPSULE PO SCH (14:00)
[2018-02-06] MEDS: FONDAPARINUX 2.5 MG/0.5 ML SYRINGE SUBCUT SCH (21:57)
[2018-02-06] MEDS: ATORVASTATIN 40 MG TABLET PO SCH (21:58)
[2018-02-06] MEDS: LATANOPROST 0.005% OPH SOLN 2.5 ML BOTTLE RIGHT EYE SCH (21:58)
[2018-02-06] MEDS: Melatonin [Melatonin] 5 MG PO SCH (22:06)
[2018-02-07] MEDS: PANTOPRAZOLE 40 MG TABLET PO SCH (06:15)
[2018-02-07] MEDS: FUROSEMIDE 20 MG/2 ML VIAL IV SCH ×2 (09:20→15:44)
[2018-02-07] MEDS: LORATADINE 10 MG TABLET PO SCH (09:20)
[2018-02-07] MEDS: TAMSULOSIN 0.4 MG CAPSULE PO SCH ×2 (09:20→20:54)
[2018-02-07] MEDS: ATENOLOL 25 MG TABLET PO SCH ×2 (09:20→20:53)
[2018-02-07] MEDS: ASPIRIN CHEW 81 MG TABLET PO SCH (09:20)
[2018-02-07] MEDS: FLUoxetine 20 MG CAPSULE PO SCH (09:20)
[2018-02-07] MEDS: TIMOLOL 0.5% OPH SOLN 5 ML BOTTLE RIGHT EYE SCH (09:21)
[2018-02-07] MEDS: DOCUSATE SODIUM 100 MG CAPSULE PO SCH ×4 (09:21→20:54)
[2018-02-07] MEDS: POLYETHYLENE GLYCOL POWDER 17 GM PACK PO SCH (09:22)
[2018-02-07] MEDS: oxyCODONE/ACETAMINOPHEN 5-325 MG TABLET PO PRN (09:26)
[2018-02-07] MEDS: COLLAGENASE OINT 30 GM TUBE TOP SCH (15:44)
[2018-02-07] MEDS: Melatonin [Melatonin] 5 MG PO SCH (20:53)
[2018-02-07] MEDS: ATORVASTATIN 40 MG TABLET PO SCH (20:53)
[2018-02-07] MEDS: LATANOPROST 0.005% OPH SOLN 2.5 ML BOTTLE RIGHT EYE SCH (20:54)
[2018-02-07] MEDS: FONDAPARINUX 2.5 MG/0.5 ML SYRINGE SUBCUT SCH (20:54)
[2018-02-08] MEDS: oxyCODONE/ACETAMINOPHEN 5-325 MG TABLET PO PRN (00:08)
[2018-02-08 05:42] LABS: Calcium 8.5 MG/DL (8.5-10.1); Osmolality,Calculated 279.5 MOS/KG (273-304); Potassium 3.9 MMOL/L (3.5-5.1)
[2018-02-08] MEDS: PANTOPRAZOLE 40 MG TABLET PO SCH (06:52)
[2018-02-08] MEDS: TIMOLOL 0.5% OPH SOLN 5 ML BOTTLE RIGHT EYE SCH (09:28)
[2018-02-08] MEDS: DOCUSATE SODIUM 100 MG CAPSULE PO SCH ×2 (09:29→09:30)
[2018-02-08] MEDS: LORATADINE 10 MG TABLET PO SCH (09:32)
[2018-02-08] MEDS: FLUoxetine 20 MG CAPSULE PO SCH (09:32)
[2018-02-08] MEDS: FUROSEMIDE 20 MG/2 ML VIAL IV SCH (09:32)
[2018-02-08] MEDS: POLYETHYLENE GLYCOL POWDER 17 GM PACK PO SCH (09:32)
[2018-02-08] MEDS: ASPIRIN CHEW 81 MG TABLET PO SCH (09:36)
[2018-02-08] MEDS: TAMSULOSIN 0.4 MG CAPSULE PO SCH (09:37)
[2018-02-08] MEDS: COLLAGENASE OINT 30 GM TUBE TOP SCH (09:37)
[2018-02-08] MEDS: ATENOLOL 25 MG TABLET PO SCH (09:37)
[2018-02-08 11:56] VITALS: BP 135/79
== END 2018-02-08 14:08 | disposition swing bed (61) | DRG 469 ==
LOC: EDUNIT# → EDBD → N.ED 13:00 → N.EDINP 15:07 → SUATTDRO 15:07 → N.3E 17:21
PROVIDERS: ADMIT Internal Medicine; ATTEND Internal Medicine

== ENCOUNTER 2018-06-15 07:46 | Inpatient (IN) ==
[2018-06-15] MEDS ORDERED: ONDANSETRON 4 MG/2 ML VIAL IV PRN (09:55)
[2018-06-15 10:15] LABS: Basophils % 0.1 % (0.0-0.8); Eosinophils % 0.6 % (0.00-10.9); Hematocrit 28.9 VOL% (42.0-52.0); Hemoglobin 9.2 GM/DL (14.0-18.0); Immature Granulocytes % 0.4 %; Immature Granulocytes Absolute 0.03 #; Lymphocytes # 0.3 10*3/uL (1.4-4.0); Lymphocytes % 4.9 % (21.2-54.2); Mean Corpuscular HGB Conc 31.8 GM/DL (32-36); Mean Corpuscular Hemoglobin 31 PG (27-34); Mean Platelet Volume 10.3 FL (9.6-12.0); Monocytes # 0.1 10*3/uL (0.11-0.8); Monocytes % 1.2 % (1.7-12.7); Neutrophils # 6.4 10*3/uL (1.4-7.4); Neutrophils % 92.8 % (38.7-73.9); Platelet Count 182 T/CUMM (130-400); Red Blood Count 2.98 MC/CUMM (3.8-5.5); Red Cell Distribution Width 19.6 % (9.3-17.3); White Blood Count 6.9 T/CUMM (4-12)
[2018-06-15] MEDS: PANTOPRAZOLE 40 MG TABLET PO SCH (10:47)
[2018-06-15] MEDS: ACETAMINOPHEN 325 MG TABLET PO PRN ×2 (10:49→18:53)
[2018-06-15 11:10] LABS: Albumin 3.3 G/DL (3.4-5.0); Bilirubin,Total 0.6 MG/DL (0.2-1.0); Calcium 9.1 MG/DL (8.5-10.1); Potassium 4.7 MMOL/L (3.5-5.1); Thyroid Stimulating Hormone 1.29 uIU/ml (0.358-3.74)
[2018-06-15 11:18] LABS: Eosinophils 1 % (0-10); Hypochromasia 1+; Lymphocytes 4 % (20-55); Ovalocytes Slight; Platelet Estimate Adequate; Segmented Neutrophils 93 % (50-85); Total Cells Counted 100
[2018-06-15] MEDS ORDERED: NITROGLYCERIN SL 0.4 MG TABLET SL PRN (13:26)
[2018-06-15] MEDS ORDERED: ALBUTEROL/IPRATROPIUM 3 ML NEB RESP TX PRN (13:27)
[2018-06-15] MEDS: FUROSEMIDE 40 MG/4 ML VIAL IV SCH (15:25)
[2018-06-15] MEDS: ATORVASTATIN 40 MG TABLET PO SCH (20:42)
[2018-06-15] MEDS: clonazePAM 0.5 MG TABLET PO SCH (20:42)
[2018-06-15] MEDS: DOCUSATE SODIUM 100 MG CAPSULE PO SCH (20:42)
[2018-06-15] MEDS: MELATONIN 3 MG TABLET PO SCH (20:43)
[2018-06-15] MEDS: ATENOLOL 25 MG TABLET PO SCH (20:43)
[2018-06-15] MEDS: LATANOPROST 0.005% OPH SOLN 2.5 ML BOTTLE RIGHT EYE SCH (20:45)
[2018-06-16 03:52] LABS: Basophils % 0.1 % (0.0-0.8); Eosinophils % 0.1 % (0.00-10.9); Hematocrit 24.8 VOL% (42.0-52.0); Hemoglobin 7.7 GM/DL (14.0-18.0); Immature Granulocytes % 0.7 %; Immature Granulocytes Absolute 0.07 #; Lymphocytes % 9.4 % (21.2-54.2); Mean Corpuscular Hemoglobin 30 PG (27-34); Mean Corpuscular Volume 96.1 FL (87-102); Mean Platelet Volume 10.2 FL (9.6-12.0); Monocytes # 0.8 10*3/uL (0.11-0.8); Monocytes % 7.4 % (1.7-12.7); Neutrophils # 8.7 10*3/uL (1.4-7.4); Neutrophils % 82.3 % (38.7-73.9); Platelet Count 174 T/CUMM (130-400); Red Blood Count 2.58 MC/CUMM (3.8-5.5); Red Cell Distribution Width 19.3 % (9.3-17.3); White Blood Count 10.5 T/CUMM (4-12)
[2018-06-16 04:13] LABS: Calcium 8.8 MG/DL (8.5-10.1); Osmolality,Calculated 287.8 MOS/KG (273-304); Potassium 4.6 MMOL/L (3.5-5.1)
[2018-06-16 07:59] LABS: Apearance,Urine CLOUDY (Clear); Bilirubin,Urine Negative (Negative); Blood, Urine Small mg/dL (Negative); Glucose,Urine (UA) Negative (Negative); Hyaline Casts,Urine 31 /LPF (0-3); Ketones,Urine Negative (Negative); Mucus,Urine Occasional /LPF (Occasional); Nitrite,Urine Negative (Negative); Protein,Urine Negative; RBC,Urine 12 /HPF (0-4); Squamous Epithelial Cell,Urine Occasional /HPF (0-10); Urine Color Yellow (Yellow); Urine Specific Gravity 1.011 (1.001-1.035); Urine Urobilinogen < 2.0 EU/DL (0.2-1.0); WBC,Urine 514 /HPF (0-6)
[2018-06-16] MEDS ORDERED: FLUoxetine 20 MG CAPSULE PO SCH (08:00)
[2018-06-16] MEDS: FUROSEMIDE 40 MG/4 ML VIAL IV SCH (09:39)
[2018-06-16] MEDS: ATENOLOL 25 MG TABLET PO SCH ×2 (09:41→20:48)
[2018-06-16] MEDS: ASPIRIN EC 81 MG TABLET PO SCH (09:42)
[2018-06-16] MEDS: FLUoxetine 20 MG CAPSULE PO SCH (09:42)
[2018-06-16] MEDS: DOCUSATE SODIUM 100 MG CAPSULE PO SCH ×2 (09:42→20:48)
[2018-06-16] MEDS: LORATADINE 10 MG TABLET PO SCH (09:42)
[2018-06-16] MEDS: clonazePAM 0.5 MG TABLET PO SCH ×2 (09:42→20:48)
[2018-06-16] MEDS: PANTOPRAZOLE 40 MG TABLET PO SCH (09:42)
[2018-06-16 09:43] LABS: Hematocrit 25.5 VOL% (42.0-52.0); Hemoglobin 8.1 GM/DL (14.0-18.0)
[2018-06-16] MEDS: TIMOLOL 0.5% OPH SOLN 5 ML BOTTLE RIGHT EYE SCH (09:43)
[2018-06-16] MEDS: cefTRIAXone 1,000 MG in SYRINGE 1 EACH IV SCH (09:50)
[2018-06-16] MEDS: MELATONIN 3 MG TABLET PO SCH (20:48)
[2018-06-16] MEDS: ATORVASTATIN 40 MG TABLET PO SCH (20:48)
[2018-06-16] MEDS: LATANOPROST 0.005% OPH SOLN 2.5 ML BOTTLE RIGHT EYE SCH (20:52)
[2018-06-16] MEDS ORDERED: amLODIPine 10 MG TABLET PO SCH (21:00)
[2018-06-16] MEDS: ACETAMINOPHEN 325 MG TABLET PO PRN (23:31)
[2018-06-17 05:04] LABS: Basophils # 0.1 10*3/uL (0.0-0.2); Basophils % 0.7 % (0.0-0.8); Eosinophils # 0.5 10*3/uL (0.0-0.87); Eosinophils % 6.6 % (0.00-10.9); Hematocrit 27.9 VOL% (42.0-52.0); Hemoglobin 9.4 GM/DL (14.0-18.0); Immature Granulocytes % 0.3 %; Immature Granulocytes Absolute 0.02 #; Lymphocytes # 1.6 10*3/uL (1.4-4.0); Lymphocytes % 21.5 % (21.2-54.2); Mean Corpuscular HGB Conc 33.7 GM/DL (32-36); Mean Corpuscular Hemoglobin 32 PG (27-34); Mean Corpuscular Volume 96.2 FL (87-102); Mean Platelet Volume 10.7 FL (9.6-12.0); Monocytes # 0.6 10*3/uL (0.11-0.8); Neutrophils # 4.8 10*3/uL (1.4-7.4); Neutrophils % 62.9 % (38.7-73.9); Platelet Count 244 T/CUMM (130-400); White Blood Count 7.6 T/CUMM (4-12)
[2018-06-17 05:53] LABS: Osmolality,Calculated 288.7 MOS/KG (273-304); Potassium 4.4 MMOL/L (3.5-5.1)
[2018-06-17 07:55] VITALS: BP 124/81
[2018-06-17] MEDS: clonazePAM 0.5 MG TABLET PO SCH (08:11)
[2018-06-17] MEDS: DOCUSATE SODIUM 100 MG CAPSULE PO SCH (08:11)
[2018-06-17] MEDS: ATENOLOL 25 MG TABLET PO SCH (08:11)
[2018-06-17] MEDS: PANTOPRAZOLE 40 MG TABLET PO SCH (08:11)
[2018-06-17] MEDS: LORATADINE 10 MG TABLET PO SCH (08:11)
[2018-06-17] MEDS: FLUoxetine 20 MG CAPSULE PO SCH (08:11)
[2018-06-17] MEDS: TIMOLOL 0.5% OPH SOLN 5 ML BOTTLE RIGHT EYE SCH (08:12)
[2018-06-17] MEDS: cefTRIAXone 1,000 MG in SYRINGE 1 EACH IV SCH (08:12)
[2018-06-17] MEDS: ASPIRIN EC 81 MG TABLET PO SCH (08:12)
[2018-06-17] MEDS ORDERED: FUROSEMIDE 20 MG TABLET PO SCH (09:00)
== END 2018-06-17 10:57 | disposition home health service (06) | DRG 682 ==
LOC: N.2E
PROVIDERS: ADMIT Internal Medicine; ATTEND Internal Medicine

== ENCOUNTER 2018-10-13 11:10 | Inpatient (IN) ==
[2018-10-13] MEDS ORDERED: LEVOFLOXACIN INJ 500 MG in PREMIX 1 EACH IV STA (11:31)
[2018-10-13 11:38] LABS: Basophils % 0.5 % (0.0-0.8); Eosinophils # 0.4 10*3/uL (0.0-0.87); Eosinophils % 4.8 % (0.00-10.9); Hematocrit 32.5 VOL% (42.0-52.0); Hemoglobin 10.1 GM/DL (14.0-18.0); Immature Granulocytes % 0.4 %; Immature Granulocytes Absolute 0.03 #; Lymphocytes # 1.1 10*3/uL (1.4-4.0); Lymphocytes % 14.5 % (21.2-54.2); Mean Corpuscular HGB Conc 31.1 GM/DL (32-36); Mean Corpuscular Hemoglobin 28 PG (27-34); Mean Corpuscular Volume 90.5 FL (87-102); Mean Platelet Volume 10.7 FL (9.6-12.0); Monocytes # 0.7 10*3/uL (0.11-0.8); Monocytes % 9.1 % (1.7-12.7); Neutrophils # 5.4 10*3/uL (1.4-7.4); Neutrophils % 70.7 % (38.7-73.9); Platelet Count 209 T/CUMM (130-400); Red Blood Count 3.59 MC/CUMM (3.8-5.5); Red Cell Distribution Width 16.2 % (9.3-17.3); White Blood Count 7.6 T/CUMM (4-12)
[2018-10-13 12:06] LABS: Bilirubin,Total 0.4 MG/DL (0.2-1.0); Calcium 8.8 MG/DL (8.5-10.1); Potassium 5.3 MMOL/L (3.5-5.1); Total Protein 7.6 G/DL (6.4-8.3)
[2018-10-13] MEDS ORDERED: diphenhydrAMINE 50 MG/1 ML VIAL ONE (12:17)
[2018-10-13] MEDS ORDERED: SODIUM CHLORIDE 0.9% 100 ML IV ONE (12:18)
[2018-10-13] MEDS ORDERED: cefTRIAXone 1,000 MG VIAL ONE (12:18)
[2018-10-13] MEDS ORDERED: cefTRIAXone 1,000 MG in SODIUM CHLORIDE 0.9% 100 ML IV STA (12:26)
[2018-10-13] MEDS ORDERED: diphenhydrAMINE 50 MG/1 ML VIAL IV STA (12:26)
[2018-10-13] MEDS ORDERED: SODIUM POLYSTYRENE SULFATE 15 GM/60 ML BOTTLE PO STA (12:32)
[2018-10-13] MEDS ORDERED: FUROSEMIDE 20 MG/2 ML VIAL IV STA (12:32)
[2018-10-13] MEDS ORDERED: ONDANSETRON 4 MG/2 ML VIAL IV PRN (13:44)
[2018-10-13] MEDS ORDERED: ACETAMINOPHEN 325 MG TABLET PO PRN (13:44)
[2018-10-13] MEDS ORDERED: NITROGLYCERIN SL 0.4 MG TABLET SL PRN (13:47)
[2018-10-13] MEDS ORDERED: ALBUTEROL 2.5 MG/3 ML NEB RESP TX PRN (13:48)
[2018-10-13] MEDS: SODIUM CHLORIDE 0.9% 1,000 ML IV SCH (14:20)
[2018-10-13] MEDS: LACTULOSE 20 GM/30 ML UDCUP PO SCH ×2 (17:15→20:52)
[2018-10-13] MEDS: cefTRIAXone 1,000 MG in SYRINGE 1 EACH IV SCH (17:16)
[2018-10-13] MEDS: methylPREDNISolone SOD SUC 40 MG/1 ML VIAL IV SCH ×2 (17:17→23:13)
[2018-10-13] MEDS: MORPHINE 4 MG/1 ML VIAL IV PRN ×2 (17:18→23:13)
[2018-10-13] MEDS: ALBUTEROL/IPRATROPIUM 3 ML NEB RESP TX SCH ×2 (17:36→23:54)
[2018-10-13] MEDS: MELATONIN 3 MG TABLET PO SCH (20:45)
[2018-10-13] MEDS: MAGNESIUM GLUCONATE 500 MG TABLET PO SCH (20:45)
[2018-10-13] MEDS: guaiFENesin/DM ER 600-30 MG TABLET PO SCH (20:45)
[2018-10-13] MEDS: CHOLECALCIFEROL 400 UNIT TABLET PO SCH (20:45)
[2018-10-13] MEDS: ATORVASTATIN 40 MG TABLET PO SCH (20:46)
[2018-10-13] MEDS: ATENOLOL 25 MG TABLET PO SCH (20:46)
[2018-10-13] MEDS: amLODIPine 10 MG TABLET PO SCH (20:46)
[2018-10-13] MEDS: DOCUSATE SODIUM 100 MG CAPSULE PO SCH (20:52)
[2018-10-13] MEDS: LATANOPROST 0.005% OPH SOLN 2.5 ML BOTTLE RIGHT EYE SCH (20:52)
[2018-10-13] MEDS ORDERED: DOCUSATE SODIUM 100 MG CAPSULE PO SCH (21:00)
[2018-10-13] MEDS ORDERED: NAPROXEN 250 MG TABLET PO SCH (21:00)
[2018-10-14] MEDS: LACTULOSE 20 GM/30 ML UDCUP PO SCH ×6 (00:04→21:34)
[2018-10-14] MEDS: SODIUM CHLORIDE 0.9% 1,000 ML IV SCH ×2 (03:13→10:51)
[2018-10-14] MEDS: cefTRIAXone 1,000 MG in SYRINGE 1 EACH IV SCH ×2 (06:37→16:09)
[2018-10-14] MEDS: methylPREDNISolone SOD SUC 40 MG/1 ML VIAL IV SCH ×4 (06:38→21:26)
[2018-10-14 06:46] LABS: Basophils % 0.1 % (0.0-0.8); Hematocrit 31.2 VOL% (42.0-52.0); Hemoglobin 9.5 GM/DL (14.0-18.0); Immature Granulocytes % 0.5 %; Immature Granulocytes Absolute 0.04 #; Lymphocytes # 0.9 10*3/uL (1.4-4.0); Lymphocytes % 10.2 % (21.2-54.2); Mean Corpuscular HGB Conc 30.4 GM/DL (32-36); Mean Corpuscular Hemoglobin 28 PG (27-34); Mean Corpuscular Volume 91.5 FL (87-102); Mean Platelet Volume 10.5 FL (9.6-12.0); Monocytes # 0.2 10*3/uL (0.11-0.8); Neutrophils # 7.4 10*3/uL (1.4-7.4); Neutrophils % 87.2 % (38.7-73.9); Platelet Count 224 T/CUMM (130-400); Red Blood Count 3.41 MC/CUMM (3.8-5.5); Red Cell Distribution Width 16.5 % (9.3-17.3); White Blood Count 8.5 T/CUMM (4-12)
[2018-10-14 07:21] LABS: Albumin 2.9 G/DL (3.4-5.0); Bilirubin,Total 1.3 MG/DL (0.2-1.0); Calcium 9.2 MG/DL (8.5-10.1); Osmolality,Calculated 285.8 MOS/KG (273-304); Potassium 5.3 MMOL/L (3.5-5.1); Total Protein 8.1 G/DL (6.4-8.3)
[2018-10-14] MEDS ORDERED: SODIUM POLYSTYRENE SULFATE 15 GM/60 ML BOTTLE PO ONE (08:11)
[2018-10-14] MEDS: FLUoxetine 20 MG CAPSULE PO SCH (08:35)
[2018-10-14] MEDS: ATENOLOL 25 MG TABLET PO SCH ×2 (08:35→21:27)
[2018-10-14] MEDS: guaiFENesin/DM ER 600-30 MG TABLET PO SCH ×2 (08:35→21:35)
[2018-10-14] MEDS: AZITHROMYCIN 250 MG TABLET PO SCH (08:35)
[2018-10-14] MEDS: DOCUSATE SODIUM 100 MG CAPSULE PO SCH ×2 (08:35→21:26)
[2018-10-14] MEDS: ALBUTEROL/IPRATROPIUM 3 ML NEB RESP TX SCH ×3 (08:35→19:27)
[2018-10-14] MEDS: ASPIRIN EC 81 MG TABLET PO SCH (08:35)
[2018-10-14] MEDS: PANTOPRAZOLE 40 MG TABLET PO SCH (08:36)
[2018-10-14] MEDS: TIMOLOL 0.5% OPH SOLN 5 ML BOTTLE RIGHT EYE SCH (08:36)
[2018-10-14] MEDS: LORATADINE 10 MG TABLET PO SCH (08:36)
[2018-10-14] MEDS ORDERED: cefTRIAXone 1,000 MG in SYRINGE 1 EACH IV SCH (09:00)
[2018-10-14] MEDS: MORPHINE 4 MG/1 ML VIAL IV PRN ×2 (10:57→16:31)
[2018-10-14] MEDS ORDERED: HALOPERIDOL 5 MG/ML AMP IV PRN (13:48)
[2018-10-14] MEDS ORDERED: diphenhydrAMINE 50 MG/1 ML VIAL IV PRN (13:49)
[2018-10-14] MEDS: MELATONIN 3 MG TABLET PO SCH (20:53)
[2018-10-14] MEDS: MAGNESIUM GLUCONATE 500 MG TABLET PO SCH (21:27)
[2018-10-14] MEDS: amLODIPine 10 MG TABLET PO SCH (21:28)
[2018-10-14] MEDS: CHOLECALCIFEROL 400 UNIT TABLET PO SCH (21:28)
[2018-10-14] MEDS: ATORVASTATIN 40 MG TABLET PO SCH (21:28)
[2018-10-14] MEDS: LATANOPROST 0.005% OPH SOLN 2.5 ML BOTTLE RIGHT EYE SCH (21:35)
[2018-10-15] MEDS: LACTULOSE 20 GM/30 ML UDCUP PO SCH ×6 (01:16→20:40)
[2018-10-15] MEDS: methylPREDNISolone SOD SUC 40 MG/1 ML VIAL IV SCH ×4 (01:16→16:31)
[2018-10-15] MEDS: ALBUTEROL/IPRATROPIUM 3 ML NEB RESP TX SCH ×4 (01:37→19:26)
[2018-10-15 04:45] LABS: Basophils % 0.1 % (0.0-0.8); Hematocrit 32.1 VOL% (42.0-52.0); Hemoglobin 9.7 GM/DL (14.0-18.0); Immature Granulocytes % 0.8 %; Immature Granulocytes Absolute 0.11 #; Lymphocytes # 0.9 10*3/uL (1.4-4.0); Lymphocytes % 6.1 % (21.2-54.2); Mean Corpuscular HGB Conc 30.2 GM/DL (32-36); Mean Corpuscular Hemoglobin 28 PG (27-34); Mean Platelet Volume 10.8 FL (9.6-12.0); Monocytes # 0.2 10*3/uL (0.11-0.8); Monocytes % 1.6 % (1.7-12.7); Neutrophils # 12.8 10*3/uL (1.4-7.4); Neutrophils % 91.4 % (38.7-73.9); Platelet Count 250 T/CUMM (130-400); Red Blood Count 3.49 MC/CUMM (3.8-5.5); Red Cell Distribution Width 16.3 % (9.3-17.3)
[2018-10-15] MEDS: cefTRIAXone 1,000 MG in SYRINGE 1 EACH IV SCH ×2 (05:03→16:30)
[2018-10-15 05:06] LABS: Albumin 2.8 G/DL (3.4-5.0); Bilirubin,Total 0.7 MG/DL (0.2-1.0); Calcium 9.4 MG/DL (8.5-10.1); Osmolality,Calculated 283.1 MOS/KG (273-304); Potassium 5.8 MMOL/L (3.5-5.1); Total Protein 7.9 G/DL (6.4-8.3)
[2018-10-15 05:56] LABS: Hypochromasia Slight; Lymphocytes 6 % (20-55); Platelet Estimate Normal; Segmented Neutrophils 94 % (50-85); Total Cells Counted 100
[2018-10-15] MEDS ORDERED: FUROSEMIDE 40 MG/4 ML VIAL IV ONE (08:32)
[2018-10-15] MEDS ORDERED: DEXTROSE 50% 25 GM/50 ML SYRINGE IV ONE (08:33)
[2018-10-15] MEDS ORDERED: INSULIN REGULAR 100 UNIT/ML IV ONE (08:33)
[2018-10-15] MEDS: LORATADINE 10 MG TABLET PO SCH (09:12)
[2018-10-15] MEDS: ATENOLOL 25 MG TABLET PO SCH ×2 (09:12→20:42)
[2018-10-15] MEDS: ASPIRIN EC 81 MG TABLET PO SCH (09:12)
[2018-10-15] MEDS: guaiFENesin/DM ER 600-30 MG TABLET PO SCH ×2 (09:12→20:41)
[2018-10-15] MEDS: FLUoxetine 20 MG CAPSULE PO SCH (09:13)
[2018-10-15] MEDS: PANTOPRAZOLE 40 MG TABLET PO SCH (09:13)
[2018-10-15] MEDS: AZITHROMYCIN 250 MG TABLET PO SCH (09:13)
[2018-10-15] MEDS: DOCUSATE SODIUM 100 MG CAPSULE PO SCH ×2 (09:14→20:47)
[2018-10-15] MEDS: TIMOLOL 0.5% OPH SOLN 5 ML BOTTLE RIGHT EYE SCH (09:15)
[2018-10-15] MEDS: SODIUM CHLORIDE 0.9% 1,000 ML IV SCH ×2 (09:17→15:23)
[2018-10-15] MEDS: SODIUM POLYSTYRENE SULFATE 15 GM/60 ML BOTTLE PO ONE ×2 (10:16→11:23)
[2018-10-15] MEDS: MAGNESIUM GLUCONATE 500 MG TABLET PO SCH (20:41)
[2018-10-15] MEDS: CHOLECALCIFEROL 400 UNIT TABLET PO SCH (20:41)
[2018-10-15] MEDS: MELATONIN 3 MG TABLET PO SCH (20:41)
[2018-10-15] MEDS: amLODIPine 10 MG TABLET PO SCH (20:41)
[2018-10-15] MEDS: ATORVASTATIN 40 MG TABLET PO SCH (20:41)
[2018-10-15] MEDS: LATANOPROST 0.005% OPH SOLN 2.5 ML BOTTLE RIGHT EYE SCH (20:47)
[2018-10-16] MEDS: methylPREDNISolone SOD SUC 40 MG/1 ML VIAL IV SCH ×4 (00:02→16:20)
[2018-10-16] MEDS: ALBUTEROL/IPRATROPIUM 3 ML NEB RESP TX SCH ×4 (00:42→19:20)
[2018-10-16] MEDS: LACTULOSE 20 GM/30 ML UDCUP PO SCH ×6 (01:30→22:55)
[2018-10-16] MEDS: cefTRIAXone 1,000 MG in SYRINGE 1 EACH IV SCH ×2 (06:03→16:19)
[2018-10-16] MEDS: TIMOLOL 0.5% OPH SOLN 5 ML BOTTLE RIGHT EYE SCH (08:52)
[2018-10-16] MEDS: guaiFENesin/DM ER 600-30 MG TABLET PO SCH ×2 (08:53→22:55)
[2018-10-16] MEDS: PANTOPRAZOLE 40 MG TABLET PO SCH (08:53)
[2018-10-16] MEDS: ATENOLOL 25 MG TABLET PO SCH ×2 (08:53→22:56)
[2018-10-16] MEDS: LORATADINE 10 MG TABLET PO SCH (08:53)
[2018-10-16] MEDS: FLUoxetine 20 MG CAPSULE PO SCH (08:53)
[2018-10-16] MEDS: ASPIRIN EC 81 MG TABLET PO SCH (08:53)
[2018-10-16] MEDS: FUROSEMIDE 40 MG/4 ML VIAL IV SCH (08:54)
[2018-10-16] MEDS: DOCUSATE SODIUM 100 MG CAPSULE PO SCH ×2 (08:54→22:56)
[2018-10-16] MEDS ORDERED: LOPERAMIDE 2 MG CAPSULE PO PRN (09:01)
[2018-10-16] MEDS: AZITHROMYCIN 250 MG TABLET PO SCH (09:41)
[2018-10-16] MEDS: LATANOPROST 0.005% OPH SOLN 2.5 ML BOTTLE RIGHT EYE SCH (22:55)
[2018-10-16] MEDS: ATORVASTATIN 40 MG TABLET PO SCH (22:56)
[2018-10-16] MEDS: MELATONIN 3 MG TABLET PO SCH (22:56)
[2018-10-16] MEDS: amLODIPine 10 MG TABLET PO SCH (22:57)
[2018-10-16] MEDS: MAGNESIUM GLUCONATE 500 MG TABLET PO SCH (22:57)
[2018-10-16] MEDS: CHOLECALCIFEROL 400 UNIT TABLET PO SCH (22:57)
[2018-10-16] MEDS: LACTOBACILLUS RHAMNOSUS GG CAPSULE PO SCH (22:57)
[2018-10-17] MEDS: LACTULOSE 20 GM/30 ML UDCUP PO SCH ×3 (00:52→08:35)
[2018-10-17] MEDS: methylPREDNISolone SOD SUC 40 MG/1 ML VIAL IV SCH ×3 (01:10→10:51)
[2018-10-17 05:18] LABS: Hematocrit 32.5 VOL% (42.0-52.0); Hemoglobin 10.1 GM/DL (14.0-18.0); Immature Granulocytes % 0.5 %; Immature Granulocytes Absolute 0.07 #; Lymphocytes # 0.8 10*3/uL (1.4-4.0); Lymphocytes % 5.7 % (21.2-54.2); Mean Corpuscular HGB Conc 31.1 GM/DL (32-36); Mean Corpuscular Hemoglobin 28 PG (27-34); Mean Corpuscular Volume 89.8 FL (87-102); Mean Platelet Volume 10.4 FL (9.6-12.0); Monocytes # 0.3 10*3/uL (0.11-0.8); Monocytes % 2.5 % (1.7-12.7); Neutrophils # 12.2 10*3/uL (1.4-7.4); Neutrophils % 91.3 % (38.7-73.9); Platelet Count 264 T/CUMM (130-400); Red Blood Count 3.62 MC/CUMM (3.8-5.5); Red Cell Distribution Width 16.4 % (9.3-17.3); White Blood Count 13.3 T/CUMM (4-12)
[2018-10-17] MEDS: ALBUTEROL/IPRATROPIUM 3 ML NEB RESP TX SCH ×2 (05:28→07:46)
[2018-10-17 05:37] LABS: Calcium 8.7 MG/DL (8.5-10.1); Potassium 3.7 MMOL/L (3.5-5.1)
[2018-10-17 06:00] LABS: Lymphocytes 4 % (20-55); Segmented Neutrophils 96 % (50-85); Total Cells Counted 100
[2018-10-17 06:01] LABS: Platelet Estimate Normal; Polychromasia Few
[2018-10-17] MEDS: cefTRIAXone 1,000 MG in SYRINGE 1 EACH IV SCH (07:00)
[2018-10-17] MEDS: FUROSEMIDE 40 MG/4 ML VIAL IV SCH (08:28)
[2018-10-17] MEDS: AZITHROMYCIN 250 MG TABLET PO SCH (08:35)
[2018-10-17] MEDS: ATENOLOL 25 MG TABLET PO SCH (08:35)
[2018-10-17] MEDS: LORATADINE 10 MG TABLET PO SCH (08:36)
[2018-10-17] MEDS: TIMOLOL 0.5% OPH SOLN 5 ML BOTTLE RIGHT EYE SCH (08:36)
[2018-10-17] MEDS: guaiFENesin/DM ER 600-30 MG TABLET PO SCH (08:36)
[2018-10-17] MEDS: LACTOBACILLUS RHAMNOSUS GG CAPSULE PO SCH (08:36)
[2018-10-17] MEDS: FLUoxetine 20 MG CAPSULE PO SCH (08:36)
[2018-10-17] MEDS: PANTOPRAZOLE 40 MG TABLET PO SCH (08:36)
[2018-10-17] MEDS: DOCUSATE SODIUM 100 MG CAPSULE PO SCH (08:36)
[2018-10-17] MEDS: ASPIRIN EC 81 MG TABLET PO SCH (08:36)
[2018-10-17 11:54] VITALS: BP 134/96
== END 2018-10-17 13:20 | disposition home or self-care (01) | DRG 871 ==
LOC: EDUNIT# → N.ED 11:10 → N.EDINP 13:44 → SUATTDRO 13:44 → N.3E 16:05
PROVIDERS: ADMIT Hospitalist; ATTEND Internal Medicine